=== PATIENT | male | born 1955 | race Caucasian/White ===

== ENCOUNTER 2021-01-08 11:00 | Inpatient (IN) ==
[2021-01-08] MEDS ORDERED: SODIUM CHLORIDE 0.9% 1000ML 1,000 ML IV SCH (11:30)
[2021-01-08 11:36] LABS: Basophils # (auto) 0.02 K/uL (0-0.2); Basophils % (auto) 0.2 %; Eosinophils # (auto) 0.04 K/uL (0-0.5); Eosinophils % (auto) 0.3 %; Hematocrit (blood only) 45.1 % (42-52); Hemoglobin 15.7 g/dL (14.0-18.0); Immature Granulocytes # (auto) 0.03 K/uL (0.00-0.02); Immature Granulocytes % (auto) 0.2 %; Lymphocytes # (auto) 2.63 K/uL (1.2-3.4); Lymphocytes % (auto) 21.5 %; Mean Corpuscular Hemoglobin 33.8 pg (25-34); Mean Corpuscular Hgb Conc 34.8 g/dL (32-36); Mean Platelet Volume 11.4 fL (7.4-10.4); Monocytes # (auto) 1.25 K/uL (0.11-0.59); Monocytes % (auto) 10.2 %; Neutrophils # (auto) 8.28 K/uL (1.4-6.5); Neutrophils % (auto) 67.6 %; Platelet Count 223 K/uL (130-400); RDW Coefficient of Variation 13.8 % (11.5-14.5); RDW Standard Deviation 48.7 fL (36.4-46.3); Red Blood Count 4.65 M/uL (4.7-6.1); White Blood Count 12.25 K/uL (4.8-10.8)
[2021-01-08 12:06] LABS: Alanine Aminotransferase 82 U/L (12-78); Albumin Level 3.1 gm/dl (3.4-5.0); Aspartate Aminotransferase 57 U/L (15-37); BUN Creatinine Ratio 20.3 (10-20); Blood Urea Nitrogen 17 mg/dl (7-18); Calcium 9.3 mg/dl (8.5-10.1); Carbon Dioxide 27 mmol/L (21-32); Chloride 113 mmol/L (98-107); Creatinine Clr Calc Pharmacy 101.5 ml/min; Est GFR (African American) 107.6 ml/min; Est GFR (Non-African American) 92.8 ml/min; Glucose 150 mg/dl (70-99); Magnesium 2.3 mg/dl (1.8-2.4); Potassium 3.7 mmol/L (3.5-5.1); Sodium 145 mmol/L (136-145)
--- NOTE | 2021-01-08 12:11 | CT Scan Report ---
HEAD CT NONCONTRAST CT DOSE: 1228.53 mGy.cm HISTORY: Brain tumor. Altered mental status. TECHNIQUE: Multiaxial CT images of the head were performed without the use of intravenous contrast. A utomated exposure control was utilized for this study. A dose lowering technique was utilized adheri ng to the principles of ALARA. Comparison: Brain MRI 08/20/2020. Findings: The paranasal sinuses and mastoid air cells are clear. Postoperative changes consistent wit h a prior right craniotomy. There is a large resection defect within the right frontal lobe deep to t he craniotomy site. This remains unchanged. Infiltrative heterogeneous mass again noted within the ri ght frontal lobe and extending into the right basal ganglia, corpus callosum, and left frontal lobe. This is similar to the prior brain MRI. There is mass effect along the frontal horn of the right late ral ventricle without significant midline shift. This is also unchanged. Multifocal hyperdense foci w ithin the frontal lobes likely represent calcification/posttreatment changes. Small focal areas of he morrhage are considered less likely but not entirely excluded. Mild motion artifact. No definite acut e infarct. Impression: 1. Redemonstration of the infiltrative mass centered within the right frontal lobe which extends into the right basal ganglia and left frontal lobe. Although direct comparison is difficult given the dif ferent modalities, this is overall similar in distribution compared to the prior brain MRI. 2. Multifocal hyperdense foci within the frontal lobes likely representing calcification/posttreatmen t changes within the mass. Small focal areas of hemorrhage are considered less likely but not entirel y excluded. Consider [address] follow to ensure stability. 3. No change in the resection cavity within the right frontal lobe. ACT 112: Negative or not required by law. Electronically signed by: Kb Spann M.D. 01/08/2021 12:10 PM
--- NOTE | 2021-01-08 12:15 | XRay Report ---
XR chest 1V portable CLINICAL HISTORY: weakness COMPARISON STUDY: No previous studies for comparison. FINDINGS: No pneumothorax. No pleural effusion. Mild reticular nodular opacities are seen within the right lower lung and might represent atelectasis or infiltrative lesion. Lung volumes are decreased with crowded lung markings. Cardiomediastinal silhouette is within normal limits in size. No significant pulmonary vascular congestion.. Aorta is tortuous and calcified. Osseous structures: unremarkable IMPRESSION: 1. Reticular nodular opacities at the right lower lung which might represent atelectasis or infiltra te. Evaluation is limited due to low lung volumes. 2. Atherosclerosis. ACT 112: Negative or not required by law. The above report was generated using voice recognition software. It may contain grammatical, syntax o r spelling errors. Electronically signed by: Amparo Downey DO 01/08/2021 12:14 PM
[2021-01-08 12:17] LABS: Albumin Globulin Ratio 0.7 (0.9-2); Alkaline Phosphatase 72 U/L (45-117); Bilirubin,Total 0.8 mg/dl (0.2-1); Globulin 4.3 gm/dl (2.5-4.0); Total Protein 7.4 gm/dl (6.4-8.2); Troponin I < 0.015 ng/ml (0-0.045)
--- NOTE | 2021-01-08 12:43 | Electrocardiogram Report ---
Test Reason : Blood Pressure : / mmHG Vent. Rate : 095 BPM Atrial Rate : 095 BPM P-R Int : 164 ms QRS Dur : 106 ms QT Int : 378 ms P-R-T Axes : 035 -47 008 degrees QTc Int : 475 ms Normal sinus rhythm Left anterior fascicular block Diffuse Minor Nonspecific T wave abnormality Prolonged QT Abnormal ECG No previous ECGs available Confirmed by Isidro Gómez ([id number]) on 01/08/2021 12:43:20 PM Referred By: REFERRED SELF Confirmed By:Isidro Gómez
[2021-01-08] MEDS ORDERED: PIPERACILLIN/TAZOBACTAM 4.5 GM/120 ML BAG IV ONE (13:17)
[2021-01-08] MEDS ORDERED: PIPERACILL/TAZOBAC CONSULT ACTIVE PRN ×2 (13:17→19:18)
[2021-01-08 15:31] LABS: Phenytoin (Dilantin) 16.4 mcg/ml (10-20)
[2021-01-08] MEDS ORDERED: VALPROATE SOD 250 MG in DEXTROSE 5% 50 ML IV STA (15:41)
[2021-01-08] MEDS ORDERED: SODIUM CHLORIDE 0.9% 10ML FLUSH IV ONE (15:42)
[2021-01-08] MEDS ORDERED: PHENYTOIN 100 MG in SYRINGE 0 ML IV STA (15:42)
[2021-01-08] MEDS ORDERED: dexAMETHasone 2 MG in SYRINGE 0 ML IV ONE (18:15)
[2021-01-08] MEDS ORDERED: OPTIRAY 320 125ml IV ONE (18:27)
--- NOTE | 2021-01-08 19:05 | CT Scan Report ---
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 Acute shortness of breath TECHNIQUE: Multiple CTA images of the chest were obtained after the intravenous administration of 120 ml Optiray. Coronal and sagittal MIPS were obtained from the axial data set and were submitted for review. All measurements were obtained according to NASCET criteria. A dose lowering technique was u tilized adhering to the principles of ALARA. COMPARISON: Chest radiograph of same day FINDINGS: CTA: The heart is upper limits of normal in size. Mild coronary artery calcifications. No thoracic aortic aneurysm or dissection. Mild atherosclerotic plaque the thoracic aortic arch. Patency of the imaged g reat vessels. The subsegmental branches of the pulmonary arterial tree are suboptimally opacified. No pulmonary emboli identified. CT CHEST: No thyroid nodule. No adenopathy. Dependent bibasilar linear consolidation with intermixed groundglas s densities. Tracheobronchial secretions with bibasilar mucous plugging. Respiratory motion artifact limits evaluation of the lung parenchyma. No pneumothorax, pleural effusion or overt pulmonary edema. Mild bilateral bronchial wall thickening. No suspicious pulmonary nodules identified. No pneumoperitoneum. Numerous hypodense foci of the liver, most of which likely represent cysts measu re up to 3.0 cm. Several of these lesions are too small to characterize. Tiny hiatal hernia. 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 Degenerative changes of the spine and shoulders. No suspicious lesions or acute fracture i dentified. IMPRESSION: 1. No pulmonary emboli. 2. Tracheobronchial secretions with bibasilar mucous plugging. 3. Dependent bibasilar consolidation is suggestive of atelectasis or pneumonia. Correlate clinically to exclude aspiration pneumonitis. 4. No pleural effusion. ACT 112: Negative or not required by law. The above report was generated using voice recognition software. It may contain grammatical, syntax o r spelling errors. Electronically signed by: Harish Del Castillo M.D. 01/08/2021 7:03 PM
--- NOTE | 2021-01-08 20:00 | History & Physical Report ---
Date of Service January 08, 2021 Assessment & Plan (1) Aspiration pneumonia: (2) Acute respiratory failure with hypoxia: Plan: -Admit to [facility] with telemetry -Patient presenting from home with shortness of breath, worsening weakness -In the ED, requiring nonrebreather mask to maintain saturations. CXR suggestive of aspiration pneumonia -CTA chest negative for pulmonary embolism however shows signs of mucous plugging -S/p Zosyn in the ED, continue with -Maintain n.p.o. status until mentation improves -Nebs, chest PT (3) Oligodendroglioma: Plan: -History of resection, chemotherapy, radiation -Currently no active treatment -No further treatment options per -Transition p.o. dexamethasone to IV while n.p.o. -Palliative consult (4) Seizures: Plan: -Transition to phenytoin and Depakote to IV while n.p.o. (5) Hypothyroidism: Plan: -IV levothyroxine while n.p.o. 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 History is unobtainable from the patient, is at the bedside who provides the history. reports that patient typically could walk with the use of an assistive device. Over the past week and a half, candie barahona has been having increasing left-sided weakness to the point where it is flaccid. Patient has been bedbound for the past couple of days. Patient has been having trouble swallowing his medications. He is nonverbal at baseline however will communicate by shaking his head yes and no. This morning, patient appeared to have increased work of breathing so he was brought to the ED for further evaluation. reports that he was very diaphoretic however did not take his temperature. Incontinent of bowel and bladder at baseline. No other symptoms reported. No recent seizure-like activity. In the ED, patient was requiring nonrebreather mask to maintain saturations. CXR is suggestive of aspiration pneumonia. WBC 12 K. Patient is afebrile and hemodynamically stable. Head CT shows brain mass unchanged. Patient was given IV Zosyn, IVF. Allergies Allergy/AdvReac Type Severity Reaction Status Date / Time baclofen Allergy Severe Unresponsiv Verified 01/08/21 15:56 e procarbazine Allergy Intermediate RASH, Verified 01/08/21 15:56 SWELLING OF HANDS/FACE Home Medications Medication Instructions Recorded Confirmed Type citalopram 40 mg tablet 20 mg PO HS 12/26/19 01/08/21 History levothyroxine 50 mcg tablet 50 mcg PO QAM 01/21/20 01/08/21 History acetaminophen 500 mg/15 mL oral 500 - 1,000 mg PO QID PRN 01/08/21 01/08/21 History liquid amoxicillin 250 mg/5 mL oral 500 mg PO BID 01/08/21 01/08/21 History suspension dexamethasone 2 mg tablet 2 mg PO BID 01/08/21 01/08/21 History divalproex 125 mg capsule,delayed 500 mg PO BID 01/08/21 01/08/21 History release sprinkle phenytoin 125 mg/5 mL oral 100 mg PO BID 01/08/21 01/08/21 History suspension (Dilantin-125) Past Med/Surg History Medical History (Updated 01/08/21 @ 19:56 by MONA Obrien) Dementia Depression GERD (gastroesophageal reflux disease) Hypothyroidism Migraine Oligodendroglioma hx of resection, chemo, radiation Poor historian POOR MEMORY Seizures Surgical History H/O abdominal surgery "TIED OFF VESSELS FOR OVERPRODUCTION OF TESTOTERONE" History of ear surgery MOLE REMOVED FROM EAR History of tonsillectomy S/P brain surgery X 2 SURGERIES [place] teeth removed Family History Family/Other No problems noted. 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 Houston's addendum for physical exam Results & Data Results & Data ([facility]) Vital Signs (Past 12 Hours) Vital Signs Temp Pulse Pulse Resp BP BP Pulse Ox 01/08/21 19:00 36.6 C 69 22 116/77 93 01/08/21 17:30 79 18 100/74 93 01/08/21 17:00 79 15 121/82 93 01/08/21 16:30 82 16 109/78 94 01/08/21 16:00 84 18 119/86 91 01/08/21 15:30 86 19 125/87 92 01/08/21 15:00 87 20 123/94 91 01/08/21 14:30 87 19 129/90 97 01/08/21 14:00 82 17 127/94 95 01/08/21 13:31 81 20 145/98 H 95 01/08/21 13:00 82 19 103/83 93 01/08/21 12:30 86 32 H 103/83 92 01/08/21 12:00 90 30 H 123/91 93 01/08/21 11:30 95 H 30 H 109/90 90 01/08/21 11:13 37.1 C 95 H 50 H 134/95 90 01/08/21 11:07 96 H 31 H 134/95 90 Laboratory Results Short CBC 01/08/21 Range/Units 10:30 WBC 12.25 H (4.8-10.8) K/uL Hgb 15.7 (14.0-18.0) g/dL Hct 45.1 (42-52) % Plt Count 223 (130-400) K/uL BMP 01/08/21 10:30 Sodium 145 Potassium 3.7 Chloride 113 H Carbon Dioxide 27 BUN 17 Creatinine 0.82 Glucose 150 H Calcium 9.3 Cardiac Enzymes 01/08/21 Range/Units 10:30 Troponin I < 0.015 (0-0.045) ng/ml Liver Function 01/08/21 Range/Units 10:30 Total Bilirubin 0.8 (0.2-1) mg/dl AST 57 H (15-37) U/L ALT 82 H (12-78) U/L Alkaline Phosphatase 72 (45-117) U/L Albumin 3.1 L (3.4-5.0) gm/dl Diagnostic Findings Chest X-Ray 01/08/21 11:24 XR chest 1V portable CLINICAL HISTORY: weakness COMPARISON STUDY: No previous studies for comparison. FINDINGS: No pneumothorax. No pleural effusion. Mild reticular nodular opacities are seen within the right lower lung and might represent atelectasis or infiltrative lesion. Lung volumes are decreased with crowded lung markings. Cardiomediastinal silhouette is within normal limits in size. No significant pulmonary vascular congestion.. Aorta is tortuous and calcified. Osseous structures: unremarkable IMPRESSION: 1. Reticular nodular opacities at the right lower lung which might represent atelectasis or infiltrate. Evaluation is limited due to low lung volumes. 2. Atherosclerosis. ACT 112: Negative or not required by law. The above report was generated using voice recognition software. It may contain grammatical, syntax or spelling errors. Electronically signed by: Amparo Downey DO 01/08/2021 12:[address] 01/08/21 11:[address] DOSE: 1228.53 mGy.cm HISTORY: Brain tumor. Altered mental status. TECHNIQUE: Multiaxial CT images of the head were performed without the use of intravenous contrast. Automated exposure control was utilized for this study. A dose lowering technique was utilized adhering to the principles of ALARA. Comparison: Brain MRI 08/20/2020. Findings: The paranasal sinuses and mastoid air cells are clear. Postoperative changes consistent with a prior right craniotomy. There is a large resection defect within the right frontal lobe deep to the craniotomy site. This remains unchanged. Infiltrative heterogeneous mass again noted within the right frontal lobe and extending into the right basal ganglia, corpus callosum, and left frontal lobe. This is similar to the prior brain MRI. There is mass effect along the frontal horn of the right lateral ventricle without significant midline shift. This is also unchanged. Multifocal hyperdense foci within the frontal lobes likely represent calcification/posttreatment changes. Small focal areas of hemorrhage are considered less likely but not entirely excluded. Mild motion artifact. No definite acute infarct. Impression: 1. Redemonstration of the infiltrative mass centered within the right frontal lobe which extends into the right basal ganglia and left frontal lobe. Although direct comparison is difficult given the different modalities, this is overall similar in distribution compared to the prior brain MRI. 2. Multifocal hyperdense foci within the frontal lobes likely representing calcification/posttreatment changes within the mass. Small focal areas of hemorrhage are considered less likely but not entirely excluded. Consider [address] follow to ensure stability. 3. No change in the resection cavity within the right frontal lobe. ACT 112: Negative or not required by law. Electronically signed by: Kb Spann M.D. 01/08/2021 12:10 PM Chest CTA 01/08/21 13:19 CT angio chest PE protocol CT DOSE: 734.44 mGy.cm HISTORY: 65 years-old Male with glioma brain, resp sx, PE vs aspiration. Acute shortness of breath TECHNIQUE: Multiple CTA images of the chest were obtained after the intravenous administration of 120 ml Optiray. Coronal and sagittal MIPS were obtained from the axial data set and were submitted for review. All measurements were obtained according to NASCET criteria. A dose lowering technique was utilized adhering to the principles of ALARA. COMPARISON: Chest radiograph of same day FINDINGS: CTA: The heart is upper limits of normal in size. Mild coronary artery calcifications. No thoracic aortic aneurysm or dissection. Mild atherosclerotic plaque the thoracic aortic arch. Patency of the imaged great vessels. The subsegmental branches of the pulmonary arterial tree are suboptimally opacified. No pulmonary emboli identified. CT CHEST: No thyroid nodule. No adenopathy. Dependent bibasilar linear consolidation with intermixed groundglass densities. Tracheobronchial secretions with bibasilar mucous plugging. Respiratory motion artifact limits evaluation of the lung parenchyma. No pneumothorax, pleural effusion or overt pulmonary edema. Mild bilateral bronchial wall thickening. No suspicious pulmonary nodules identified. No pneumoperitoneum. Numerous hypodense foci of the liver, most of which likely represent cysts measure up to 3.0 cm. Several of these lesions are too small to characterize. Tiny hiatal hernia. Mild gynecomastia. Degenerative changes of the spine and shoulders. No suspicious lesions or acute fracture identified. IMPRESSION: 1. No pulmonary emboli. 2. Tracheobronchial secretions with bibasilar mucous plugging. 3. Dependent bibasilar consolidation is suggestive of atelectasis or pneumonia. Correlate clinically to exclude aspiration pneumonitis. 4. No pleural effusion. ACT 112: Negative or not required by law. The above report was generated using voice recognition software. It may contain grammatical, syntax or spelling errors. Electronically signed by: Harish Del Castillo M.D. 01/08/2021 7:03 PM Code Status & VTE Plan Code Status Patient is a DNR as per my discussion with patient's who is the bedside. VTE Prophylaxis Plan VTE Prophylaxis will be ordered: Yes Supervising Physician Co-Signing Physician Notes Patient is a 65-year-old male with history of oligodendroglioma, hypothyroidism, seizure disorder, ambulatory dysfunction and other medical problems presents with history of worsening shortness of breath, generalized weakness ambulatory dysfunction for the last few few days. Patient is mostly nonverbal and most of the history is obtained from patient's at bedside, old records and from ER physician. As per the family, patient has been mostly bedbound since last 3 days. Also noticed to have dysphagia and has difficulty taking his medications. His dyspnea gradually worsening which prompted family to bring the patient to ED. No aggressive management as per patient's family. He was noted to have elevated white count 12.25, CT head showed infiltrative mass within the right frontal lobe which extends into the right basal ganglia and left frontal lobe, similar in distribution compared to prior MRI. Also noted multifocal hyperdense foci within the frontal lobes likely represent dating calcification/posttreatment changes within the mass. Small focal areas of hemorrhage are considered less likely but are not excluded. CTA showed tracheobronchial secretions with bibasilar mucous plugging. Dependent bibasilar consolidation suggestive of atelectasis or pneumonia noted. Lactic acid is within normal limits. He was placed on nonrebreather while in ED. Physical Exam: Vitals signs as noted above General Appearance:Moderately built and nourished, no apparent distress Head: normocephalic, Atraumatic Eyes: normal inspection, EOMI Neck: supple, Trachea midline Respiratory/Chest: Coarse breath sounds, CTA Cardiovascular: S1, S2, No murmur Abdomen/GI:Soft, Non tender, Bowel sounds present Extremities/Musculoskeletal:normal inspection, no edema Neurologic/Psych:AA, tries to follow commands, complete neurological exam could not be performed, Non verbal Skin: normal color, warm Acute respiratory failure with hypoxia Mucous plugging Suspected aspiration pneumonitis Agree with empiric antibiotics Chest PT, hypertonic saline nebs Continue supplemental oxygen as needed No aggressive management as per patient's family Speech therapy Eval Aspiration precautions I personally reviewed the record. Patient is interviewed and examined at bedside. Patient's care is coordinated with Vianca Arellano SOFTWARE CLIENT ARCHITECT. Please refer to the documentation above for details of patient's presentation and for discussion of other issues.
[2021-01-08] MEDS: SODIUM CHLORIDE 0.9% 1000ML 1,000 ML IV SCH (20:06)
[2021-01-08] MEDS: PIPERACILLIN/TAZOBACTAM 3.375 GM in DEXTROSE 5% 100 ML IV SCH (20:25)
[2021-01-08] MEDS: ALBUT/IPRATROP 3MG/0.5MG NEB 3 ML VIAL NEB SCH (20:32)
[2021-01-08] MEDS: VALPROATE SOD 250 MG in DEXTROSE 5% 50 ML IV SCH (22:14)
[2021-01-09] MEDS: PIPERACILLIN/TAZOBACTAM 3.375 GM in DEXTROSE 5% 100 ML IV SCH ×3 (03:49→21:48)
[2021-01-09] MEDS: PHENYTOIN 100 MG in SYRINGE 0 ML IV SCH ×2 (06:11→17:36)
[2021-01-09] MEDS: dexAMETHasone 2 MG in SYRINGE 0 ML IV SCH ×2 (06:11→17:36)
[2021-01-09] MEDS: SODIUM CHLORIDE 0.9% 10ML FLUSH IV SCH ×2 (06:13→17:36)
[2021-01-09 08:01] LABS: Hematocrit (blood only) 40.5 % (42-52); Hemoglobin 13.6 g/dL (14.0-18.0); Mean Corpuscular Hemoglobin 32.7 pg (25-34); Mean Corpuscular Hgb Conc 33.6 g/dL (32-36); Mean Corpuscular Volume 97.4 fL (80-100); Mean Platelet Volume 10.9 fL (7.4-10.4); Platelet Count 193 K/uL (130-400); RDW Coefficient of Variation 13.7 % (11.5-14.5); RDW Standard Deviation 48.9 fL (36.4-46.3); Red Blood Count 4.16 M/uL (4.7-6.1); White Blood Count 10.04 K/uL (4.8-10.8)
[2021-01-09] MEDS: SODIUM CHLOR 7% 4 ML NEB NEB SCH ×2 (08:10→19:36)
[2021-01-09] MEDS: ALBUT/IPRATROP 3MG/0.5MG NEB 3 ML VIAL NEB SCH ×4 (08:10→19:35)
--- NOTE | 2021-01-09 08:14 | Emergency Department Note ---
History of Present Illness General Chief complaint: Illness Source: family and RN notes reviewed Mode of arrival: EMS Limitations: altered mental status History of Present Illness Provider complaint: Altered mental status, respiratory difficulty, hypoxia This patient is a 65-year-old male with a longstanding history of glioma status post resection, chemotherapy and is no longer being treated. states over the last week he has had a significant decline in his strength and mobility. He did require heavy encouragement to swallow his food and pills yesterday. states his p.o. intake has dropped off significantly. His oncologist in [place] put him on amoxicillin presuming this is a UTI as he is incontinent. Patient has not had a fever although did vomit up his medications today. 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 denies any fevers but states he has had significant difficulty breathing today his oxygen saturations have been very low reportedly in the 70s and he has been having raspy breath sounds. Home Medications Medication Instructions Recorded Confirmed Type citalopram 40 mg tablet 20 mg PO HS 12/26/19 01/08/21 History levothyroxine 50 mcg tablet 50 mcg PO QAM 01/21/20 01/08/21 History acetaminophen 500 mg/15 mL oral 500 - 1,000 mg PO QID PRN 01/08/21 01/08/21 History liquid amoxicillin 250 mg/5 mL oral 500 mg PO BID 01/08/21 01/08/21 History suspension dexamethasone 2 mg tablet 2 mg PO BID 01/08/21 01/08/21 History divalproex 125 mg capsule,delayed 500 mg PO BID 01/08/21 01/08/21 History release sprinkle phenytoin 125 mg/5 mL oral 100 mg PO BID 01/08/21 01/08/21 History suspension (Dilantin-125) Allergies Allergy/AdvReac Type Severity Reaction Status Date / Time baclofen Allergy Severe Unresponsiv Verified 01/08/21 15:56 e procarbazine Allergy Intermediate RASH, Verified 01/08/21 15:56 SWELLING OF HANDS/FACE Past Med/Surg History Medical History Altered mental status Dementia Depression GERD (gastroesophageal reflux disease) Hypothyroidism Migraine Oligodendroglioma hx of resection, chemo, radiation Palliative care encounter Poor historian [employer] Seizures Shortness of breath Weakness Surgical History H/O abdominal surgery "TIED OFF VESSELS FOR OVERPRODUCTION OF TESTOTERONE" History of ear surgery MOLE REMOVED FROM EAR History of tonsillectomy S/P brain surgery X 2 SURGERIES [place] teeth removed Family History Family/Other No problems noted. 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 and A total of 10 systems reviewed and were otherwise negative Physical Exam Vital Signs Vital Signs - 24 hr 01/08/21 11:07 01/08/21 11:13 01/08/21 11:30 Temperature 37.1 C Temperature Source Oral Pulse Rate 96 H 95 H 95 H Pulse Rate from SpO2 Sensor 97 H 95 H Respiratory Rate 31 H 50 H 30 H Respiratory Effort / Characteristics Accessory Muscle Use Labored Short of Breath Respiratory Depth Shallow Respiratory Pattern Tachypnea Blood Pressure 134/95 134/95 109/90 Blood Pressure Mean 108 108 96 Blood Pressure Position Sitting Pulse Oximetry 90 90 90 Oxygen Delivery Method Non-rebreather Non-rebreather Non-rebreather Oxygen Flow Rate 15 15 15 Sepsis Recent Fever Within 48 Hours Yes Sepsis New/Unexplained Change in Mental Status Yes Sepsis Action Taken by Nursing Physician Notified 01/08/21 12:00 01/08/21 12:30 01/08/21 13:00 Temperature Temperature Source Pulse Rate 90 86 82 Pulse Rate from SpO2 Sensor 90 81 83 Respiratory Rate 30 H 32 H 19 Respiratory Effort / Characteristics Respiratory Depth Respiratory Pattern Blood Pressure 123/91 103/83 103/83 Blood Pressure Mean 101 89 89 Blood Pressure Position Pulse Oximetry 93 92 93 Oxygen Delivery Method Non-rebreather Non-rebreather Oxygen Flow Rate 15 15 Sepsis Recent Fever Within 48 Hours Sepsis New/Unexplained Change in Mental Status Sepsis Action Taken by Nursing 01/08/21 13:31 01/08/21 14:00 Temperature Temperature Source Pulse Rate 81 82 Pulse Rate from SpO2 Sensor 81 82 Respiratory Rate 20 17 Respiratory Effort / Characteristics Respiratory Depth Respiratory Pattern Blood Pressure 145/98 H 127/94 Blood Pressure Mean 113 105 Blood Pressure Position Pulse Oximetry 95 95 Oxygen Delivery Method Non-rebreather Non-rebreather Oxygen Flow Rate 15 15 Sepsis Recent Fever Within 48 Hours Sepsis New/Unexplained Change in Mental Status Sepsis Action Taken by Nursing Vital signs reviewed. General: Chronically ill-appearing 65-year-old male, in some respiratory discomfort, altered and minimally responsive HEENT: No scleral icterus, pupils are equal but sluggish, neck supple. Atraumatic. Cardiovascular: Regular rate and rhythm, no extra sounds. Pulmonary: Coarse breath sounds bilaterally, increased work of breathing. Abdomen: Soft, nontender, nondistended, positive bowel sounds. Musculoskeletal: Atraumatic, no peripheral edema. Neurologic: Patient somnolent and difficult to arouse. Nonverbal. He does squeeze with the right hand apparently to command. He will not release on command. Patient does not perform any other tasks to command statements. Skin: Warm, dry, no rash Course Administered Medications Acetylcysteine (Acetylcysteine 10% Inhal Soln 4 Ml Dispensed By Resp.) 5 ml INH BIDR [facility] Stop: 02/08/21 11:29 Last Admin: 01/10/21 19:28 Dose: 5 ml Documented by: [id number] Admin: 01/10/21 08:05 Dose: 5 ml Documented by: [id number] Admin: 01/09/21 19:35 Dose: 5 ml Documented by: [id number] Admin: 01/09/21 14:50 Dose: 5 ml Documented by: [id number] Albuterol (Albut/Ipratrop 3mg/0.5mg Neb 3 Ml Vial) 3 ml NEB QIDR [facility] Stop: 02/07/21 19:17 Last Admin: 01/10/21 19:27 Dose: 3 ml Documented by: [id number] Admin: 01/10/21 15:04 Dose: 3 ml Documented by: [id number] Admin: 01/10/21 11:08 Dose: 3 ml Documented by: [id number] Admin: 01/10/21 08:02 Dose: 3 ml Documented by: [id number] Admin: 01/09/21 19:35 Dose: 3 ml Documented by: [id number] Admin: 01/09/21 14:50 Dose: 3 ml Documented by: [id number] Admin: 01/09/21 11:00 Dose: 3 ml Documented by: [id number] Admin: 01/09/21 08:10 Dose: 3 ml Documented by: [id number] Admin: 01/08/21 20:32 Dose: 3 ml Documented by: [id number] Citalopram Hydrobromide (Citalopram 20 Mg Tab) 20 mg PO HS HOME Stop: 02/09/21 20:59 Last Admin: 01/10/21 20:20 Dose: 20 mg Documented by: [id number] Dexamethasone (Dexamethasone 1 Mg Tab) 2 mg PO BID HOME Stop: 02/09/21 20:59 Last Admin: 01/10/21 20:21 Dose: 2 mg Documented by: [id number] Divalproex Sodium (Divalproex Sodium Sprinkle 125 Mg Cap) 500 mg PO BID HOME Stop: 02/09/21 20:59 Last Admin: 01/10/21 20:20 Dose: 500 mg Documented by: [id number] Piperacillin Sod/Tazobactam (Sod 3.375 gm/ Dextrose) 115 mls @ 28.75 mls/hr IV Q8H [facility]; Protocol Stop: 01/15/21 19:59 Last Admin: 01/10/21 21:43 Dose: 28.8 mls/hr Documented by: [id number] Infusion: 01/10/21 17:39 Dose: 0 mls/hr Documented by: [id number] Admin: 01/10/21 13:07 Dose: 28.8 mls/hr Documented by: [id number] Infusion: 01/10/21 10:11 Dose: 0 mls/hr Documented by: [id number] Admin: 01/10/21 06:05 Dose: 28.8 mls/hr Documented by: [id number] Infusion: 01/10/21 01:40 Dose: 0 mls/hr Documented by: [id number] Admin: 01/09/21 21:48 Dose: 28.8 mls/hr Documented by: [id number] Infusion: 01/09/21 19:42 Dose: 0 mls/hr Documented by: [id number] Admin: 01/09/21 15:00 Dose: 28.8 mls/hr Documented by: [id number] Infusion: 01/09/21 08:00 Dose: 0 mls/hr Documented by: [id number] Admin: 01/09/21 03:49 Dose: 28.8 mls/hr Documented by: [id number] Infusion: 01/09/21 00:50 Dose: 0 mls/hr Documented by: [id number] Admin: 01/08/21 20:25 Dose: 28.8 mls/hr Documented by: [id number] Phenytoin (Phenytoin 100 Mg/4 Ml Udp) 100 mg PO BID@0600,1600 HOME Stop: 02/09/21 15:59 Last Admin: 01/10/21 17:38 Dose: 100 mg Documented by: [id number] Sodium Chloride (Sodium Chloride 0.9% 10ml Flush) 20 ml IV Q12H HOME Stop: 02/08/21 05:59 Last Admin: 01/10/21 17:37 Dose: 20 ml Documented by: [id number] Admin: 01/10/21 06:04 Dose: 20 ml Documented by: [id number] Admin: 01/09/21 17:36 Dose: 20 ml Documented by: [id number] Admin: 01/09/21 06:13 Dose: 20 ml Documented by: [id number] Sodium Chloride (Sodium Chlor 7% 4 Ml Neb) 4 ml NEB BIDR HOME Stop: 02/08/21 06:59 Last Admin: 01/10/21 19:27 Dose: 4 ml Documented by: [id number] Admin: 01/10/21 08:05 Dose: 4 ml Documented by: [id number] Admin: 01/09/21 19:36 Dose: 4 ml Documented by: [id number] Admin: 01/09/21 08:10 Dose: 4 ml Documented by: [id number] Discontinued Medications Sodium Chloride (Nss 1000ml) 1,000 mls @ 125 mls/hr IV .Q8H HOME Stop: 01/08/21 19:29 Last Infusion: 01/08/21 20:30 Dose: 0 mls/hr Documented by: [id number] Admin: 01/08/21 12:32 Dose: 125 mls/hr Documented by: [id number] Piperacillin Sod/Tazobactam Sod (Zosyn) 4.5 gm in 120 mls @ 240 mls/hr IV NOW ONE Stop: 01/08/21 13:46 Last Infusion: 01/08/21 15:40 Dose: 0 mls/hr Documented by: [id number] Admin: 01/08/21 15:03 Dose: 240 mls/hr Documented by: [id number] Phenytoin 100 mg/ Syringe 2 mls @ 1 mls/min IV Q12H HOME Stop: 02/08/21 05:59 Last Admin: 01/10/21 06:05 Dose: 1 mls/min Documented by: [id number] Admin: 01/09/21 17:36 Dose: 1 mls/min Documented by: [id number] Admin: 01/09/21 06:11 Dose: 1 mls/min Documented by: [id number] Valproic Acid 250 mg/ Dextrose 52.5 mls @ 52.5 mls/hr IV QID HOME Stop: 02/07/21 20:59 Last Infusion: 01/10/21 10:57 Dose: 0 mls/hr Documented by: [id number] Admin: 01/10/21 09:50 Dose: 52.5 mls/hr Documented by: [id number] Infusion: 01/09/21 22:52 Dose: 0 mls/hr Documented by: [id number] Admin: 01/09/21 21:48 Dose: 52.5 mls/hr Documented by: [id number] Admin: 01/09/21 21:42 Dose: Not Given Documented by: [id number] Infusion: 01/09/21 17:35 Dose: 0 mls/hr Documented by: [id number] Admin: 01/09/21 16:13 Dose: 52.5 mls/hr Documented by: [id number] Infusion: 01/09/21 10:15 Dose: 0 mls/hr Documented by: [id number] Admin: 01/09/21 09:12 Dose: 52.5 mls/hr Documented by: [id number] Infusion: 01/08/21 23:20 Dose: 0 mls/hr Documented by: [id number] Admin: 01/08/21 22:14 Dose: 52.5 mls/hr Documented by: [id number] Valproic Acid 250 mg/ Dextrose 52.5 mls @ 52.5 mls/hr IV NOW STA Stop: 01/08/21 16:40 Last Infusion: 01/08/21 18:00 Dose: 0 mls/hr Documented by: [id number] Admin: 01/08/21 16:53 Dose: 52.5 mls/hr Documented by: [id number] Phenytoin 100 mg/ Syringe 2 mls @ 1 mls/min IV NOW STA Stop: 01/08/21 15:43 Last Admin: 01/08/21 16:53 Dose: 1 mls/min Documented by: [id number] Dexamethasone 2 mg/ Syringe 0.5 mls @ 1 mls/min IV ONE ONE Stop: 01/08/21 18:16 Last Admin: 01/08/21 20:57 Dose: 1 mls/min Documented by: [id number] Dexamethasone 2 mg/ Syringe 0.5 mls @ 1 mls/min IV Q12H HOME Stop: 02/08/21 05:59 Last Admin: 01/10/21 06:03 Dose: 1 mls/min Documented by: [id number] Admin: 01/09/21 17:36 Dose: 1 mls/min Documented by: [id number] Admin: 01/09/21 06:11 Dose: 1 mls/min Documented by: [id number] Sodium Chloride (Nss 1000ml) 1,000 mls @ 80 mls/hr IV .[id number] HOME Stop: 02/07/21 19:17 Last Admin: 01/09/21 09:22 Dose: Not Given Documented by: [id number] Infusion: 01/09/21 08:45 Dose: 0 mls/hr Documented by: [id number] Admin: 01/08/21 20:06 Dose: 80 mls/hr Documented by: [id number] Levothyroxine Sodium 25 mcg/ (Syringe) 1.25 mls @ 0.625 mls/min IV Q72H HOME; Protocol Stop: 02/08/21 08:59 Last Admin: 01/09/21 09:13 Dose: 0.625 mls/min Documented by: [id number] Lactated Ringer's (Lr) 1,000 mls @ 75 mls/hr IV .[id number] ONE Stop: 01/09/21 21:56 Last Infusion: 01/09/21 22:35 Dose: 0 mls/hr Documented by: [id number] Admin: 01/09/21 09:12 Dose: 75 mls/hr Documented by: [id number] Ioversol (Optiray 320 125ml) 120 ml IV ONCE ONE Stop: 01/08/21 18:28 Last Admin: 01/08/21 18:27 Dose: 120 ml Documented by: [id number] Sodium Chloride (Sodium Chloride 0.9% 10ml Flush) 20 ml IV NOW ONE Stop: 01/08/21 15:43 Last Admin: 01/08/21 16:55 Dose: 20 ml Documented by: [id number] Medical Decision Making Differential Diagnosis Infection, dehydration, metabolic abnormality, hypo/hyperglycemia, electrolyte disturbance, anemia, hypoxia, cardiac sources, intracerebral event, toxicologic, neurologic, as well as other pathologies. Medical Records Attestation: I reviewed the patient's medical records. Home Medications Current Medication List: was personally reviewed by me Laboratory Data Attestation: I reviewed the patient's lab results. Result diagrams: 01/10/21 08:49 01/10/21 08:49 Lab Results 01/08/21 01/08/21 01/08/21 Range/Units 10:30 10:30 11:53 WBC 12.25 H (4.8-10.8) K/uL RBC 4.65 L (4.7-6.1) M/uL Hgb 15.7 (14.0-18.0) g/dL Hct 45.1 (42-52) % MCV 97.0 (80-100) fL MCH 33.8 (25-34) pg MCHC 34.8 (32-36) g/dL RDW Std Deviation 48.7 H (36.4-46.3) fL RDW Coeff of Jose 13.8 (11.5-14.5) % Plt Count 223 (130-400) K/uL MPV 11.4 H (7.4-10.4) fL Immature Gran % (Auto) 0.2 % Neut % (Auto) 67.6 % Lymph % (Auto) 21.5 % Porter % (Auto) 10.2 % Eos % (Auto) 0.3 % Baso % (Auto) 0.2 % Neut # (Auto) 8.28 H (1.4-6.5) K/uL Lymph # (Auto) 2.63 (1.2-3.4) K/uL Porter # (Auto) 1.25 H (0.11-0.59) K/uL Eos # (Auto) 0.04 (0-0.5) K/uL Baso # (Auto) 0.02 (0-0.2) K/uL Immature Gran # (Auto) 0.03 H (0.00-0.02) K/uL Sodium 145 (136-145) mmol/L Potassium 3.7 (3.5-5.1) mmol/L Chloride 113 H (98-107) mmol/L Carbon Dioxide 27 (21-32) mmol/L Anion Gap 5.0 (3-11) BUN 17 (7-18) mg/dl Creatinine 0.82 (0.6-1.4) mg/dl Est Cr Clr Drug Dosing 101.5 ml/min Est GFR ( Amer) 107.6 ml/min Est GFR (Non-Af Amer) 92.8 ml/min BUN/Creatinine Ratio 20.3 H (10-20) Glucose 150 H (70-99) mg/dl Calcium 9.3 (8.5-10.1) mg/dl Magnesium 2.3 (1.8-2.4) mg/dl Total Bilirubin 0.8 (0.2-1) mg/dl AST 57 H (15-37) U/L ALT 82 H (12-78) U/L Alkaline Phosphatase 72 (45-117) U/L Troponin I < 0.015 (0-0.045) ng/ml Total Protein 7.4 (6.4-8.2) gm/dl Albumin 3.1 L (3.4-5.0) gm/dl Globulin 4.3 H (2.5-4.0) gm/dl Albumin/Globulin Ratio 0.7 L (0.9-2) TSH 1.750 (0.300-4.500) uIu/ml COVID-19 Eval Order Covid19 at [facility] SARS-CoV-2 (PCR) (Negative) 01/08/21 Range/Units 11:53 WBC (4.8-10.8) K/uL RBC (4.7-6.1) M/uL Hgb (14.0-18.0) g/dL Hct (42-52) % MCV (80-100) fL MCH (25-34) pg MCHC (32-36) g/dL RDW Std Deviation (36.4-46.3) fL RDW Coeff of Jose (11.5-14.5) % Plt Count (130-400) K/uL MPV (7.4-10.4) fL Immature Gran % (Auto) % Neut % (Auto) % Lymph % (Auto) % Porter % (Auto) % Eos % (Auto) % Baso % (Auto) % Neut # (Auto) (1.4-6.5) K/uL Lymph # (Auto) (1.2-3.4) K/uL Porter # (Auto) (0.11-0.59) K/uL Eos # (Auto) (0-0.5) K/uL Baso # (Auto) (0-0.2) K/uL Immature Gran # (Auto) (0.00-0.02) K/uL Sodium (136-145) mmol/L Potassium (3.5-5.1) mmol/L Chloride (98-107) mmol/L Carbon Dioxide (21-32) mmol/L Anion Gap (3-11) BUN (7-18) mg/dl Creatinine (0.6-1.4) mg/dl Est Cr Clr Drug Dosing ml/min Est GFR ( Amer) ml/min Est GFR (Non-Af Amer) ml/min BUN/Creatinine Ratio (10-20) Glucose (70-99) mg/dl Calcium (8.5-10.1) mg/dl Magnesium (1.8-2.4) mg/dl Total Bilirubin (0.2-1) mg/dl AST (15-37) U/L ALT (12-78) U/L Alkaline Phosphatase (45-117) U/L Troponin I (0-0.045) ng/ml Total Protein (6.4-8.2) gm/dl Albumin (3.4-5.0) gm/dl Globulin (2.5-4.0) gm/dl Albumin/Globulin Ratio (0.9-2) TSH (0.300-4.500) uIu/ml COVID-19 Eval Order SARS-CoV-2 (PCR) NEGATIVE (Negative) Imaging Data Radiologist's Impression: Chest X-Ray 01/08/21 11:24 XR chest 1V portable CLINICAL HISTORY: weakness COMPARISON STUDY: No previous studies for comparison. FINDINGS: No pneumothorax. No pleural effusion. Mild reticular nodular opacities are seen within the right lower lung and might represent atelectasis or infiltrative lesion. Lung volumes are decreased with crowded lung markings. Cardiomediastinal silhouette is within normal limits in size. No significant pulmonary vascular congestion.. Aorta is tortuous and calcified. Osseous structures: unremarkable IMPRESSION: 1. Reticular nodular opacities at the right lower lung which might represent atelectasis or infiltrate. Evaluation is limited due to low lung volumes. 2. Atherosclerosis. ACT 112: Negative or not required by law. The above report was generated using voice recognition software. It may contain grammatical, syntax or spelling errors. Electronically signed by: Amparo Downey DO 01/08/2021 12:[address] 01/08/21 11:[address] DOSE: 1228.53 mGy.cm HISTORY: Brain tumor. Altered mental status. TECHNIQUE: Multiaxial CT images of the head were performed without the use of intravenous contrast. Automated exposure control was utilized for this study. A dose lowering technique was utilized adhering to the principles of ALARA. Comparison: Brain MRI 08/20/2020. Findings: The paranasal sinuses and mastoid air cells are clear. Postoperative changes consistent with a prior right craniotomy. There is a large resection defect within the right frontal lobe deep to the craniotomy site. This remains unchanged. Infiltrative heterogeneous mass again noted within the right frontal lobe and extending into the right basal ganglia, corpus callosum, and left frontal lobe. This is similar to the prior brain MRI. There is mass effect along the frontal horn of the right lateral ventricle without significant midline shift. This is also unchanged. Multifocal hyperdense foci within the frontal lobes likely represent calcification/posttreatment changes. Small focal areas of hemorrhage are considered less likely but not entirely excluded. Mild motion artifact. No definite acute infarct. Impression: 1. Redemonstration of the infiltrative mass centered within the right frontal lobe which extends into the right basal ganglia and left frontal lobe. Although direct comparison is difficult given the different modalities, this is overall similar in distribution compared to the prior brain MRI. 2. Multifocal hyperdense foci within the frontal lobes likely representing calcification/posttreatment changes within the mass. Small focal areas of hemorrhage are considered less likely but not entirely excluded. Consider [address] follow to ensure stability. 3. No change in the resection cavity within the right frontal lobe. ACT 112: Negative or not required by law. Electronically signed by: Kb Spann M.D. 01/08/2021 12:10 PM Chest CTA 01/08/21 13:19 CT angio chest PE protocol CT DOSE: 734.44 mGy.cm HISTORY: 65 years-old Male with glioma brain, resp sx, PE vs aspiration. Acute shortness of breath TECHNIQUE: Multiple CTA images of the chest were obtained after the intravenous administration of 120 ml Optiray. Coronal and sagittal MIPS were obtained from the axial data set and were submitted for review. All measurements were obtained according to NASCET criteria. A dose lowering technique was utilized adhering to the principles of ALARA. COMPARISON: Chest radiograph of same day FINDINGS: CTA: The heart is upper limits of normal in size. Mild coronary artery calc ifications. No thoracic aortic aneurysm or dissection. Mild atherosclerotic plaque the thoracic aortic arch. Patency of the imaged great vessels. The subsegmental branches of the pulmonary arterial tree are suboptimally opacified. No pulmonary emboli identified. CT CHEST: No thyroid nodule. No adenopathy. Dependent bibasilar linear consolidation with intermixed groundglass densities. Tracheobronchial secretions with bibasilar mucous plugging. Respiratory motion artifact limits evaluation of the lung parenchyma. No pneumothorax, pleural effusion or overt pulmonary edema. Mild bilateral bronchial wall thickening. No suspicious pulmonary nodules identified. No pneumoperitoneum. Numerous hypodense foci of the liver, most of which likely represent cysts measure up to 3.0 cm. Several of these lesions are too small to characterize. Tiny hiatal hernia. Mild gynecomastia. Degenerative changes of the spine and shoulders. No suspicious lesions or acute fracture identified. IMPRESSION: 1. No pulmonary emboli. 2. Tracheobronchial secretions with bibasilar mucous plugging. 3. Dependent bibasilar consolidation is suggestive of atelectasis or pneumonia. Correlate clinically to exclude aspiration pneumonitis. 4. No pleural effusion. ACT 112: Negative or not required by law. The above report was generated using voice recognition software. It may contain grammatical, syntax or spelling errors. Electronically signed by: Harish Del Castillo M.D. 01/08/2021 7:03 PM ECG Data Attestation: I personally reviewed and interpreted this ECG as follows: Indication: + SOB/dyspnea Rate (beats per minute): 95 Rhythm: + sinus rhythm ECG Intervals/blocks: + Left anterior fascicular block and + Prolonged QT ECG ST segments: + Normal ST segments and + repolarization abnormalities (Nonspecific T wave abnormality) ECG Findings: no PACs or no PVCs Comparison ECG Date: no prior available Blood Pressure Blood Pressure Findings: Normal blood pressure Blood Pressure Disposition: did not require urgent referral MDM Narrative This patient was evaluated and appeared to be in significant decline. IV access was obtained and laboratory work was drawn. An order for cardiac monitoring was placed and the patient is noted to be in a normal sinus rhythm at [address] was performed and reveals no acute intracranial hemorrhage or large amount of brain swelling. IV fluids were initiated and blood cultures were drawn. Chest x-ray was performed and reveals evidence of bibasilar consolidation concerning for pneumonia versus aspiration. Patient does have a leukocytosis of 12.25. Patient was medicated with IV Zosyn. Resuscitation status was discussed with the patient's . She reiterated the same statement she made in triage that if the patient could come off of the ventilator at some point she would like to give a trial. I did explain that with the patient's severity of illness both chronic and now acute, predicting his ability to come off of the ventilator could be quite difficult. This time the patient is tolerating nasal cannula oxygen and seems to be much more comfortable. Case was discussed with the hospitalist service who will evaluate the patient for admission and further management. Patient's and son were aware of the plan and agreed. Impression & Plan Acute respiratory failure with hypoxia, Oligodendroglioma, Aspiration pneumonia, Acute alteration in mental status Discharge Plan Visit Data Chief Complaint: Illness ED Provider: Lorena Fournier Discharge Problem: Acute respiratory failure with hypoxia, Oligodendroglioma, Aspiration pneumonia, Acute alteration in mental status Patient Disposition: Admitted As Inpatient Discharge Instructions Interventions: ED Discharge Assessment Last Done: 01/08/21 18:18
[2021-01-09 08:31] LABS: BUN Creatinine Ratio 24.4 (10-20); Creatinine Clr Calc Pharmacy 126.3 ml/min; Est GFR (African American) 119.1 ml/min; Est GFR (Non-African American) 102.7 ml/min; Potassium 3.8 mmol/L (3.5-5.1)
[2021-01-09] MEDS ORDERED: LACTATED RINGER'S 1,000 ML IV ONE (08:37)
[2021-01-09] MEDS ORDERED: LEVOTHYROXINE SODIUM 25 MCG in SYRINGE 0 ML IV SCH (09:00)
[2021-01-09] MEDS: VALPROATE SOD 250 MG in DEXTROSE 5% 50 ML IV SCH ×4 (09:12→21:48)
[2021-01-09] MEDS: SODIUM CHLORIDE 0.9% 1000ML 1,000 ML IV SCH (09:22)
[2021-01-09] MEDS: ACETYLCYSTEINE 10% INHAL SOLN 4 ML **DISPENSED BY RESP. INH SCH ×3 (11:49→19:35)
--- NOTE | 2021-01-09 16:19 | Hospitalist Progress Note ---
Date of Service January 09, 2021 Assessment & Plan (1) Acute respiratory failure with hypoxia: Plan: Acute respiratory failure with hypoxia Mucous plugging Suspected aspiration pneumonitis Agree with empiric antibiotics Chest PT, hypertonic saline nebs, Mucomyst Continue supplemental oxygen as needed No aggressive management as per patient's family Speech therapy Eval Aspiration precautions Oligodendroglioma: S/P Resection, chemotherapy, radiation Currently no active treatment No further treatment options per family Plan to change to PO meds if tolerates diet today Palliative consulted Seizures: Transition to PO phenytoin and Depakote as able Hypothyroidism: Continue IV levothyroxine for now Code Status DNI/DNR DVT Px: SCDs Re:Brain mass Admission and Anticipated Discharge Date Admission Date: January 08, 2021 Subjective Patient is seen and examined at bedside History unreliable secondary to being nonverbal No distress on exam Nods yes to having dyspnea Denies chest pain, dizziness, nausea, abdominal pain Requiring 4 L of supplemental oxygen to maintain saturation Review of Systems Review of Systems: Other Physical Exam Physical Exam: Physical Exam: Vitals signs as noted above General Appearance:Moderately built and nourished, no apparent distress Head: normocephalic, Atraumatic Eyes: normal inspection, EOMI Neck: supple, Trachea midline Respiratory/Chest: Decreased breath sounds, CTA Cardiovascular: S1, S2, No murmur Abdomen/GI:Soft, Non tender, Bowel sounds present Extremities/Musculoskeletal:normal inspection, no edema Neurologic/Psych:AA, tries to follow commands, complete neurological exam could not be performed, Non verbal Skin: normal color, warm Results & Data Results & Data ([facility]) Vital Signs (Past 12 Hours) Vital Signs Temp Pulse Resp BP Pulse Ox 01/09/21 16:08 36.6 C 90 20 116/77 96 01/09/21 14:50 78 20 96 01/09/21 11:31 37.1 C 78 20 123/83 95 01/09/21 11:00 67 18 95 01/09/21 08:13 61 18 93 01/09/21 07:52 37.0 C 66 20 116/77 92 01/09/21 04:49 36.4 C L 59 L 16 110/70 95 Laboratory Results Short CBC 01/09/21 Range/Units 07:44 WBC 10.04 (4.8-10.8) K/uL Hgb 13.6 L (14.0-18.0) g/dL Hct 40.5 L (42-52) % Plt Count 193 (130-400) K/uL BMP 01/09/21 07:44 Sodium 146 H Potassium 3.8 Chloride 115 H Carbon Dioxide 27 BUN 16 Creatinine 0.64 Glucose 136 H Calcium 9.0
[2021-01-09 20:12] LABS: Appearance Urine Clear (Clear); Bacteria Urine Automated Negative (Negative); Blood Urine Negative (Negative); Color Urine Dark Yellow; Glucose Urine UA Negative (Negative); Ketones Urine 1+ (Negative); Leukocyte Esterase Urine Trace (Negative); Nitrite Urine Positive (Negative); Protein Urine 1+ (Negative); Specific Gravity Urine > 1.045 (1.000-1.030); Urobilinogen Urine Negative (Negative); pH Urine 5.5 (4.5-7.5)
[2021-01-09 20:17] LABS: Bilirubin Urine 1+ (Negative)
[2021-01-10] MEDS: dexAMETHasone 2 MG in SYRINGE 0 ML IV SCH (06:03)
[2021-01-10] MEDS: SODIUM CHLORIDE 0.9% 10ML FLUSH IV SCH ×2 (06:04→17:37)
[2021-01-10] MEDS: PIPERACILLIN/TAZOBACTAM 3.375 GM in DEXTROSE 5% 100 ML IV SCH ×3 (06:05→21:43)
[2021-01-10] MEDS: PHENYTOIN 100 MG in SYRINGE 0 ML IV SCH (06:05)
[2021-01-10] MEDS: ALBUT/IPRATROP 3MG/0.5MG NEB 3 ML VIAL NEB SCH ×4 (08:02→19:27)
[2021-01-10] MEDS: ACETYLCYSTEINE 10% INHAL SOLN 4 ML **DISPENSED BY RESP. INH SCH ×2 (08:05→19:28)
[2021-01-10] MEDS: SODIUM CHLOR 7% 4 ML NEB NEB SCH ×2 (08:05→19:27)
[2021-01-10 09:10] LABS: Hematocrit (blood only) 37.1 % (42-52); Hemoglobin 12.4 g/dL (14.0-18.0); Mean Corpuscular Hemoglobin 32.5 pg (25-34); Mean Corpuscular Hgb Conc 33.4 g/dL (32-36); Mean Corpuscular Volume 97.4 fL (80-100); Mean Platelet Volume 10.8 fL (7.4-10.4); Platelet Count 176 K/uL (130-400); RDW Coefficient of Variation 13.9 % (11.5-14.5); Red Blood Count 3.81 M/uL (4.7-6.1); White Blood Count 8.86 K/uL (4.8-10.8)
[2021-01-10 09:35] LABS: Calcium 8.5 mg/dl (8.5-10.1); Creatinine Clr Calc Pharmacy 132.5 ml/min; Est GFR (African American) 121.5 ml/min; Est GFR (Non-African American) 104.8 ml/min; Potassium 3.7 mmol/L (3.5-5.1)
[2021-01-10] MEDS: VALPROATE SOD 250 MG in DEXTROSE 5% 50 ML IV SCH (09:50)
--- NOTE | 2021-01-10 14:14 | Palliative Care Consultation ---
Date of Consultation January 10, 2021 Assessment & Plan (1) Palliative care encounter: Mr. Mcconnell is a 65 year old male who presented to the [facility] with increased shortness of breath and overall weakness. He lives with his , Dorothy at home and is non verbal at baseline. He has a PMH that includes: Oligodendroglioma s/p resection/chemotherapy/radiation. No further treatment options are available for him. Subsequently, he has seizures related to the tumor and has GERD, migraines and hypothyroidism. On admission, a CXR was obtained and he was diagnosed with aspiration PNA. A CTA did rule out PE. He was started on nebulizers, chest PT and IV antibiotics. Palliative Medicine was consulted to discuss overall goals of care. I met with the patient in room 261. He opened his eyes to verbal stimuli but was unable to follow commands nor respond. We were unable to have a meaningful conversation. Per review of the chart, he apparently does nod and shake his head reliably, but he only shook his head once for me during my encounter. I was able to talk with his , Dorothy over the phone [phone]. She expressed that he has been home with assistance through [facility] more recently, but feels she needs 'more direction' on what to do. She expressed that the [facility] supported a t ransition to Hospice and already had some conversations with 'an agency in [place]' but was unable to decifer which. She explained that he has markie declining over the past few weeks and his son has been helping at the house as well. She said that he has been progressively getting weaker and weaker. We discussed Hospice in detail and what it can offer. We discussed the process in detail and what medications would be available as he declines, she was very receptive of this. They have equipment at home and would like to proceed with having him return home, hopefully on Monday with Hospice. Family would like to continue IV abx while inpatient, discontinue when DC. Pt having more difficulty with swallowing pills. The above was communicated with the hospitalist and case management. (2) Oligodendroglioma: Oligodendroglioma diagnosed in 1997 s/p resection/chemotherapy/radiation. No further treatment options are available for him. At baseline, non verbal. Able to nod and shake head consistently most often. (3) Altered mental status: (4) Shortness of breath: Appears comfortable, breathing even respirations and not labored. Mottling identified on bottom of feet. (5) Weakness: History of Present Illness Reason for Consultation: Goals of Care Requesting Physician: Vianca DUNN Attending Physician: Cecilio Houston MD History of Present Illness Mr. Mcconnell is a 65 year old male who presented to the [facility] with increased shortness of breath and overall weakness. He lives with his , Dorothy at home and is non verbal at baseline. He has a PMH that includes: Oligodendroglioma s/p resection/chemotherapy/radiation. No further treatment options are available for him. Subsequently, he has seizures related to the tumor and has GERD, migraines and hypothyroidism. On admission, a CXR was obtained and he was diagnosed with aspiration PNA. A CTA did rule out PE. He was started on nebulizers, chest PT and IV antibiotics. Palliative Medicine was consulted to discuss overall goals of care. Please see A/P for further details. Thanks for involving Palliative Medicine with this unfortunate individual. Allergies Allergy/AdvReac Type Severity Reaction Status Date / Time baclofen Allergy Severe Unresponsiv Verified 01/08/21 15:56 e procarbazine Allergy Intermediate RASH, Verified 01/08/21 15:56 SWELLING OF HANDS/FACE Home Medications Medication Instructions Recorded Confirmed Type citalopram 40 mg tablet 20 mg PO HS 12/26/19 01/08/21 History levothyroxine 50 mcg tablet 50 mcg PO QAM 01/21/20 01/08/21 History acetaminophen 500 mg/15 mL oral 500 - 1,000 mg PO QID PRN 01/08/21 01/08/21 History liquid amoxicillin 250 mg/5 mL oral 500 mg PO BID 01/08/21 01/08/21 History suspension dexamethasone 2 mg tablet 2 mg PO BID 01/08/21 01/08/21 History divalproex 125 mg capsule,delayed 500 mg PO BID 01/08/21 01/08/21 History release sprinkle phenytoin 125 mg/5 mL oral 100 mg PO BID 01/08/21 01/08/21 History suspension (Dilantin-125) Patient History Medical History (Updated 01/10/21 @ 14:31 by MONA Bobo) Altered mental status Dementia Depression GERD (gastroesophageal reflux disease) Hypothyroidism Migraine Oligodendroglioma hx of resection, chemo, radiation Palliative care encounter Poor historian POOR MEMORY Seizures Shortness of breath Weakness Surgical History H/O abdominal surgery "TIED OFF VESSELS FOR OVERPRODUCTION OF TESTOTERONE" History of ear surgery MOLE REMOVED FROM EAR History of tonsillectomy S/P brain surgery X 2 SURGERIES [place] teeth removed Family History Family/Other No problems noted. Father Family history of diabetes mellitus Denies family history of Crohn's disease Colorectal cancer Ulcerative colitis Social History Smoking Status: Never smoker Second Hand Exposure: Yes (IN THE PAST); Hx Alcohol Use: No Hx Substance Use: No Preferred Language: Lao Communication Ability: Effective Visual Impairment: No Limitations Hearing Ability: Normal Disposal Plant Operator Required: No Beliefs That Will Affect Care: None marital status: Current Living Situation: Spouse current occupational status: retired Other Information That Helps Us Care for You: No Feels Safe at Home: Yes Safety Concerns: Feels Safe At This Time Assistive Devices: Glasses and Oxygen - Continuous Review of Systems Review of Systems: [place] System Assessment Scale: Pain: 0/3 Tiredness: 1/3 Lack of Appetite: 1/3 Nausea: 0/3 Palliative Performance Scale: 30% Physical Exam Constitutional: + frail appearing and comfortable ENMT: Mouth: + dry oral mucous membranes Respiratory: no labored breathing Auscultation: + diminished lung sounds Cardiovascular: Rate/Rhythm: regular rate and regular rhythm Gastrointestinal (Abdomen): normal bowel sounds, soft, nontender, no hepatosplenomegaly Skin: + mottling (bottom of feet) and + pallor Psychiatric: Orientation: alert; + not oriented x 3 Insight: + impaired insight Judgement: + impaired judgement Results & Data ([facility]) Vital Signs (Past 12 Hours) Vital Signs Temp Pulse Resp BP BP Pulse Ox 01/10/21 11:25 95 01/10/21 11:24 88 L 01/10/21 11:12 77 18 93 01/10/21 10:53 94 01/10/21 08:07 70 18 95 01/10/21 07:29 36.9 C 68 18 114/77 95 01/10/21 04:58 37.2 C 62 16 137/73 97 PG Care Time/CCT Total # of Minutes Spent Total Time Spent with Patient: Total time spent is greater than 50% in coordination of care (as documented) at patient's floor/unit and/or counseling patient: 70 minutes with >50% of that time spent assessing the patient, discussing goals of care with family and collaborating with IDT Coding Level of Care Code 25515 Initial Inpt Care Lvl 3 Diagnoses Palliative care encounter Z51.5 Oligodendroglioma C71.9 Altered mental status R41.82 Shortness of breath R06.02 Weakness R53.1 Time Spent (min) 70
--- NOTE | 2021-01-10 16:44 | Hospitalist Progress Note ---
Date of Service January 10, 2021 Assessment & Plan (1) Acute respiratory failure with hypoxia: Plan: Acute respiratory failure with hypoxia Mucous plugging Suspected aspiration pneumonitis Agree with empiric antibiotics Chest PT, hypertonic saline nebs, Mucomyst Continue supplemental oxygen as needed No aggressive management as per patient's family Speech therapy Eval Aspiration precautions Unable to wean off of oxygen Continue current therapy Oligodendroglioma: S/P Resection, chemotherapy, radiation Currently no active treatment No further treatment options per family Transition to home PO meds today as tolerating diet Palliative consulted Seizures: Continue phenytoin and Depakote Hypothyroidism: Continue levothyroxine Code Status DNI/DNR DVT Px: SCDs Re:Brain mass Admission and Anticipated Discharge Date Admission Date: January 08, 2021 Subjective Patient is seen and examined at bedside History difficult to obtain Reports dyspnea with pleuritic pain Denies chest pain, dizziness, nausea, abdominal pain Unable to wean off of oxygen Review of Systems Review of Systems: All systems reviewed & are unremarkable except as noted in Subjective Physical Exam Physical Exam: Physical Exam: Vitals signs as noted above General Appearance:Moderately built and nourished, no apparent distress Head: normocephalic, Atraumatic Eyes: normal inspection, EOMI Neck: supple, Trachea midline Respiratory/Chest: Decreased breath sounds, CTA Cardiovascular: S1, S2, No murmur Abdomen/GI:Soft, Non tender, Bowel sounds present Extremities/Musculoskeletal:normal inspection, no edema Neurologic/Psych:AA, tries to follow commands, complete neurological exam could not be performed, Non verbal Skin: normal color, warm Results & Data Results & Data ([facility]) Vital Signs (Past 12 Hours) Vital Signs Temp Pulse Resp BP BP Pulse Ox 01/10/21 16:00 37.1 C 77 18 119/75 98 01/10/21 15:05 73 16 97 01/10/21 11:25 95 01/10/21 11:24 88 L 01/10/21 11:12 77 18 93 01/10/21 10:53 94 01/10/21 08:07 70 18 95 01/10/21 07:29 36.9 C 68 18 114/77 95 01/10/21 04:58 37.2 C 62 16 137/73 97 Laboratory Results Short CBC 01/10/21 Range/Units 08:49 WBC 8.86 (4.8-10.8) K/uL Hgb 12.4 L (14.0-18.0) g/dL Hct 37.1 L (42-52) % Plt Count 176 (130-400) K/uL BMP 01/10/21 08:49 Sodium 145 Potassium 3.7 Chloride 111 H Carbon Dioxide 28 BUN 14 Creatinine 0.61 Glucose 120 H Calcium 8.5 Urine 01/09/21 Range/Units 19:50 Urine Color Dark Yellow Urine Appearance Clear (Clear) Urine pH 5.5 (4.5-7.5) Ur Specific [place] > 1.045 H (1.000-1.030) Urine Protein 1+ H (Negative) Urine Glucose (UA) Negative (Negative)
[2021-01-10] MEDS: PHENYTOIN 100 MG/4 ML UDP PO SCH (17:38)
[2021-01-10] MEDS: DIVALPROEX SODIUM SPRINKLE 125 MG CAP PO SCH (20:20)
[2021-01-10] MEDS: CITALOPRAM 20 MG TAB PO SCH (20:20)
[2021-01-10] MEDS: dexAMETHasone 1 MG TAB PO SCH (20:21)
[2021-01-11] MEDS: PHENYTOIN 100 MG/4 ML UDP PO SCH ×2 (05:29→16:20)
[2021-01-11] MEDS: LEVOTHYROXINE SODIUM 50 MCG TABLET PO SCH (05:29)
[2021-01-11] MEDS: SODIUM CHLORIDE 0.9% 10ML FLUSH IV SCH ×2 (05:30→18:38)
[2021-01-11] MEDS: PIPERACILLIN/TAZOBACTAM 3.375 GM in DEXTROSE 5% 100 ML IV SCH ×3 (05:30→22:19)
[2021-01-11] MEDS: ALBUT/IPRATROP 3MG/0.5MG NEB 3 ML VIAL NEB SCH ×4 (07:10→19:42)
[2021-01-11] MEDS: ACETYLCYSTEINE 10% INHAL SOLN 4 ML **DISPENSED BY RESP. INH SCH ×2 (07:10→19:41)
[2021-01-11] MEDS: SODIUM CHLOR 7% 4 ML NEB NEB SCH ×2 (07:10→19:41)
--- NOTE | 2021-01-11 07:57 | Hospitalist Progress Note ---
Date of Service January 11, 2021 Assessment & Plan (1) Acute respiratory failure with hypoxia: Plan: Acute respiratory failure with hypoxia Mucous plugging Suspected aspiration pneumonitis Possible Metabolic encephalopathy Agree with empiric antibiotics Chest PT, hypertonic saline nebs, Mucomyst Continue supplemental oxygen as needed No aggressive management as per patient's family Speech therapy Eval Aspiration precautions Unable to wean off of oxygen Family request pulmonary evaluation And appreciate palliative care input Oligodendroglioma: S/P Resection, chemotherapy, radiation Currently no active treatment No further treatment options per family Continue home meds Appreciate Palliative care Input Plan to transition to hospice eventually Seizures: Continue phenytoin and Depakote Hypothyroidism: Continue levothyroxine Code Status DNI/DNR DVT Px: SCDs Re:Brain mass Admission and Anticipated Discharge Date Admission Date: January 08, 2021 Subjective Patient is seen and examined at bedside History difficult to obtain No distress on exam Discussed with patient's over the phone: Requests Pulm eval Patient has cough but was not able to expectorate Still requiring 4 liters of oxygen to maintain Sats Review of Systems Review of Systems: All systems reviewed & are unremarkable except as noted in Subjective Physical Exam Physical Exam: Physical Exam: Vitals signs as noted above General Appearance:Moderately built and nourished, no apparent distress Head: normocephalic, Atraumatic Eyes: normal inspection, EOMI Neck: supple, Trachea midline Respiratory/Chest: Decreased breath sounds, CTA Cardiovascular: S1, S2, No murmur Abdomen/GI:Soft, Non tender, Bowel sounds present Extremities/Musculoskeletal:normal inspection, no edema Neurologic/Psych:AA, tries to follow commands, complete neurological exam could not be performed, Non verbal Skin: normal color, warm Results & Data Results & Data ([facility]) Vital Signs (Past 12 Hours) Vital Signs Temp Pulse Pulse Resp BP Pulse Ox 01/11/21 07:46 78 01/11/21 07:42 37.3 C 81 16 153/80 H 92 01/11/21 07:11 83 16 94 01/11/21 03:06 37 C 82 16 122/72 94 01/10/21 23:45 80 01/10/21 23:09 36.3 C L 86 16 125/77 94 Laboratory Results [facility] 01/11/21 07:14 Sodium 138 Potassium 3.6 Chloride 106 Carbon Dioxide 27 BUN 12 Creatinine 0.54 L Glucose 93 Calcium 8.2 L
[2021-01-11] MEDS: DIVALPROEX SODIUM SPRINKLE 125 MG CAP PO SCH ×2 (08:08→20:47)
[2021-01-11] MEDS: dexAMETHasone 1 MG TAB PO SCH ×2 (08:08→20:47)
[2021-01-11 08:25] LABS: BUN Creatinine Ratio 21.8 (10-20); Calcium 8.2 mg/dl (8.5-10.1); Creatinine Clr Calc Pharmacy 149.7 ml/min; Est GFR (African American) 127.7 ml/min; Est GFR (Non-African American) 110.2 ml/min; Potassium 3.6 mmol/L (3.5-5.1)
--- NOTE | 2021-01-11 15:22 | Pulmonary Consultation ---
Date of Consultation January 11, 2021 Assessment & Plan (1) Aspiration pneumonia: (2) Altered mental status: (3) Acute respiratory failure with hypoxia: CT chest 01/08/2021 personally reviewed: Bilateral lower lobe infiltrate appreciated No mediastinal lymphadenopathy --Acute hypoxic respiratory failure Secondary to multilobar bilateral pneumonia Likely from chronic aspiration COVID-19 PCR negative Patient has progressive worsening mental status from his underlying progressing oligodendroglioma Continue with aspiration precautions CoughAssist along with chest vest therapy I do not think patient will be able to use flutter valve I will add hypertonic saline nebulized Plan: Overall prognosis of the patient is guarded Patient will have chronic aspiration pneumonia most likely from worsening mental status from progressing oligodendroglioma We will continue with antibiotics and try to see if there is any improvement in the mentation with antibiotics I do not think patient is going to benefit from bronchoscopy given overall poor prognosis and very high likelihood of recurrence Patient is not getting his seizure medication for a while Would recommend if possible change all the medications IV, neurology consult will be beneficial Given the overall poor prognosis I think palliative care consult and hospice should be thought of if no improvement in the next 24-48 hours All questions inquiries of the patient's were answered in depth. Please note the above document was generated using voice recognition software. It may contain grammatical, syntax or spelling errors.Any formal questions or concerns about the content, text or information contained within the body of this dictation should be directly addressed to the provider for clarification. History of Present Illness Attending Physician: Cecilio Houston MD History of Present Illness 65-year-old male past medical history of oligodendroglioma diagnosed initially 1998 s/p resection with chemoradiation, he had recurrence and another 2 surgeries done last 1 being in , hypothyroidism, history of seizures He was present to the ER because of worsening mental status generalized weakness and shortness of breath Patient is nonverbal. Patient's was in the room during examination who helped with getting histo ry Apparently patient family were going towards hospice the following day of his presentation to the ER. Patient has been slowly having difficulty swallowing. He follows simple commands occasionally. He does cough especially when he is eating. Whenever patient is being fed even the medication he usually keeps it in the mouth. No subjective fevers at home. At the time of examination patient was opening his eyes to voice but he was not following commands. He was coughing. Social history: Non-smoker, no alcohol use, no illicit drug use. No birds at home. Allergies Allergy/AdvReac Type Severity Reaction Status Date / Time baclofen Allergy Severe Unresponsiv Verified 01/08/21 15:56 e procarbazine Allergy Intermediate RASH, Verified 01/08/21 15:56 SWELLING OF HANDS/FACE Home Medications Medication Instructions Recorded Confirmed Type citalopram 40 mg tablet 20 mg PO HS 12/26/19 01/08/21 History levothyroxine 50 mcg tablet 50 mcg PO QAM 01/21/20 01/08/21 History acetaminophen 500 mg/15 mL oral 500 - 1,000 mg PO QID PRN 01/08/21 01/08/21 History liquid amoxicillin 250 mg/5 mL oral 500 mg PO BID 01/08/21 01/08/21 History suspension dexamethasone 2 mg tablet 2 mg PO BID 01/08/21 01/08/21 History divalproex 125 mg capsule,delayed 500 mg PO BID 01/08/21 01/08/21 History release sprinkle phenytoin 125 mg/5 mL oral 100 mg PO BID 01/08/21 01/08/21 History suspension (Dilantin-125) Patient History Medical History Altered mental status Dementia Depression GERD (gastroesophageal reflux disease) Hypothyroidism Migraine Oligodendroglioma hx of resection, chemo, radiation Palliative care encounter Poor historian [employer] Seizures Shortness of breath Weakness Surgical History H/O abdominal surgery "TIED OFF VESSELS FOR OVERPRODUCTION OF TESTOTERONE" History of ear surgery MOLE REMOVED FROM EAR History of tonsillectomy S/P brain surgery X 2 SURGERIES [place] teeth removed Family History Family/Other No problems noted. Father Family history of diabetes mellitus Denies family history of Crohn's disease Colorectal cancer Ulcerative colitis Social History Smoking Status: Never smoker Second Hand Exposure: Yes (IN THE PAST); Hx Alcohol Use: No Hx Substance Use: No Preferred Language: Andorran Communication Ability: Effective Visual Impairment: No Limitations Hearing Ability: Normal Vector Control Assistant Required: No Beliefs That Will Affect Care: None marital status: Current Living Situation: Spouse current occupational status: retired Other Information That Helps Us Care for You: No Feels Safe at Home: Yes Safety Concerns: Feels Safe At This Time Assistive Devices: Glasses and Oxygen - Continuous Review of Systems Review of Systems: Unobtainable due to mental health condition Physical Exam Physical Exam: Constitutional: No acute distress HEENT:PERRLA, eyes have right-sided gaze, left cornea and dry Respiratory system: Decreased air entry bilaterally, no wheeze, no rhonchi, positive crackles bilateral lower lobes CVS: S1-S2 positive, no murmurs or gallops Abdomen: Soft, nontender, nondistended, positive bowel sounds x4 Extremities: +2 pulses bilaterally radialis/ dorsalis pedis, no cyanosis, no edema Neuro: GCS 8 Psych: Unable to assess G/U: Positive [place] Skin: no rashes, warm and dry Lymphatic: no cervical or axillary lymphadenopathy Results & Data Results & Data ([facility]) Vital Signs (Past 12 Hours) Vital Signs Temp Pulse Pulse Resp BP Pulse Ox 01/11/21 11:57 80 16 93 01/11/21 11:14 37.2 C 83 16 157/78 H 93 01/11/21 07:46 78 01/11/21 07:42 37.3 C 81 16 153/80 H 92 01/11/21 07:11 83 16 94 01/10/21 08:49 01/11/21 07:14 PG Care Time/CCT Total # of Minutes Spent Total Time Spent with Patient: Total time spent is greater than 50% in coordination of care (as documented) at patient's floor/unit and/or counseling patient: Coding Level of Care Code 08801 Inpt Consult Level 3 Diagnoses Aspiration pneumonia J69.0 Altered mental status R41.82 Acute respiratory failure with hypoxia J96.01
[2021-01-11] MEDS ORDERED: ACETAMINOPHEN 1,000 MG/100 ML VIAL IV PRN (18:22)
[2021-01-11] MEDS ORDERED: ACETYLCYSTEINE 20% INHAL SOLN 4ML ***DISPENSED BY RESP. INH SCH (19:00)
[2021-01-11] MEDS: CITALOPRAM 20 MG TAB PO SCH (20:47)
[2021-01-12] MEDS: SODIUM CHLOR 7% 4 ML NEB NEB SCH ×4 (05:21→19:28)
[2021-01-12] MEDS: PHENYTOIN 100 MG/4 ML UDP PO SCH ×2 (05:56→06:10)
[2021-01-12] MEDS: LEVOTHYROXINE SODIUM 50 MCG TABLET PO SCH ×2 (05:56→06:10)
[2021-01-12] MEDS: SODIUM CHLORIDE 0.9% 10ML FLUSH IV SCH ×3 (05:57→22:06)
[2021-01-12] MEDS: PIPERACILLIN/TAZOBACTAM 3.375 GM in DEXTROSE 5% 100 ML IV SCH ×3 (05:57→22:04)
[2021-01-12] MEDS: ACETYLCYSTEINE 10% INHAL SOLN 4 ML **DISPENSED BY RESP. INH SCH ×2 (07:24→19:28)
[2021-01-12] MEDS: ALBUT/IPRATROP 3MG/0.5MG NEB 3 ML VIAL NEB SCH ×4 (07:24→19:28)
[2021-01-12] MEDS: DIVALPROEX SODIUM SPRINKLE 125 MG CAP PO SCH (08:40)
[2021-01-12] MEDS: dexAMETHasone 1 MG TAB PO SCH (08:40)
--- NOTE | 2021-01-12 10:26 | Pulmonology Progress Note ---
Date of Service January 12, 2021 Assessment & Plan (1) Aspiration pneumonia: (2) Altered mental status: (3) Acute respiratory failure with hypoxia: Plan: CT chest 01/08/2021 personally reviewed: Bilateral lower lobe infiltrate appreciated No mediastinal lymphadenopathy --Acute hypoxic respiratory failure Secondary to multilobar bilateral pneumonia Likely from chronic aspiration COVID-19 PCR negative Patient has progressive worsening mental status from his underlying progressing oligodendroglioma Continue with aspiration precautions CoughAssist along with chest vest therapy I do not think patient will be able to use flutter valve I will add hypertonic saline nebulized Plan: Patient seems to be more alert today. This could be a combination of antibiotics and waxing and waning of his medication He refused to take his p.o. medications today. Given the overall poor prognosis patient is going for home hospice today. Pulmonary will sign off. Please note the above document was generated using voice recognition software. It may contain grammatical, syntax or spelling errors.Any formal questions or concerns about the content, text or information contained within the body of this dictation should be directly addressed to the provider for clarification. Admission and Anticipated Discharge Date Admission Date: January 08, 2021 Subjective Patient seen and examined at bedside. No acute distress, no adverse events overnight. Patient is more alert today. Is answering questions appropriately. Denied any chest pain or shortness of breath. Has been afebrile. Review of Systems Review of Systems: All systems reviewed & are unremarkable except as noted in Subjective Physical Exam Physical Exam: Constitutional: No acute distress HEENT:PERRLA Respiratory system: Decreased air entry bilaterally, no wheeze, no rhonchi, positive crackles bilateral lower lobes CVS: S1-S2 positive, no murmurs or gallops Abdomen: Soft, nontender, nondistended, positive bowel sounds x4 Extremities: +2 pulses bilaterally radialis/ dorsalis pedis, no cyanosis, no edema Neuro: Awake alert oriented to self Psych: Normal mood and affect G/U: No Rothman Skin: no rashes, warm and dry Lymphatic: no cervical or axillary lymphadenopathy Results & Data Results & Data ([facility]) Vital Signs (Past 12 Hours) Vital Signs Temp Pulse Pulse Resp BP BP Pulse Ox 01/12/21 07:40 37.1 C 78 16 142/87 H 96 01/12/21 07:27 81 18 96 08/03/21 07:25 78 01/12/21 03:12 37.6 C H 83 16 141/85 H 90 01/11/21 23:26 36.5 C 77 16 129/80 95 01/11/21 22:41 93 H 01/10/21 08:49 01/11/21 07:14 PG Care Time/CCT Total # of Minutes Spent Total Time Spent with Patient: Total time spent is greater than 50% in coordination of care (as documented) at patient's floor/unit and/or counseling patient: Coding Level of Care Code 73019 Subseq Hosp Care Lvl 2 Diagnoses Aspiration pneumonia J69.0 Altered mental status R41.82 Acute respiratory failure with hypoxia J96.01
[2021-01-12] MEDS: dexAMETHasone 2 MG in SYRINGE 0 ML IV SCH ×2 (15:54→22:04)
[2021-01-12] MEDS: PHENYTOIN 100 MG in SYRINGE 0 ML IV SCH ×2 (15:54→22:04)
--- NOTE | 2021-01-12 16:49 | Hospitalist Progress Note ---
Date of Service January 12, 2021 Assessment & Plan (1) Acute respiratory failure with hypoxia: Plan: Acute respiratory failure with hypoxia Mucous plugging Suspected aspiration pneumonitis Possible Metabolic encephalopathy Agree with empiric antibiotics Chest PT, hypertonic saline nebs, Mucomyst Continue supplemental oxygen as needed No aggressive management as per patient's family Speech therapy Eval Aspiration precautions Unable to wean off of oxygen Not a candidate for bronchoscopy Appreciate Pulmonary and palliative care input Poor Prognosis Plan to discharge home with Hospice services when arranged Oligodendroglioma: S/P Resection, chemotherapy, radiation Currently no active treatment No further treatment options per family Continue home meds Appreciate Palliative care Input Plan to transition to hospice upon discharge Seizures: Continue phenytoin and Depakote Changed to IV meds as patient refusing PO meds Hypothyroidism: Continue levothyroxine Code Status DNI/DNR DVT Px: SCDs Re:Brain mass Admission and Anticipated Discharge Date Admission Date: January 08, 2021 Subjective Patient seen and examined at bedside. Refused meds, food Poor prognosis History difficult to obtain Denies chest pain dyspnea Saturating low 90s on 3 L of supplemental oxygen Review of Systems Review of Systems: All systems reviewed & are unremarkable except as noted in Subjective Physical Exam Physical Exam: Physical Exam: Vitals signs as noted above General Appearance:Moderately built and nourished, no apparent distress Head: normocephalic, Atraumatic Eyes: normal inspection, EOMI Neck: supple, Trachea midline Respiratory/Chest: Decreased breath sounds, CTA Cardiovascular: S1, S2, No murmur Abdomen/GI:Soft, Non tender, Bowel sounds present Extremities/Musculoskeletal:normal inspection, no edema Neurologic/Psych:AA, tries to follow commands, complete neurological exam could not be performed, Non verbal Skin: normal color, warm Results & Data Results & Data ([facility]) Vital Signs (Past 12 Hours) Vital Signs Temp Pulse Pulse Resp BP Pulse Ox 01/12/21 15:51 37.5 C 95 H 16 134/87 91 01/12/21 15:39 83 18 91 01/12/21 15:05 91 H 01/12/21 11:47 37.3 C 82 16 126/79 93 01/12/21 11:02 80 20 93 01/12/21 07:40 37.1 C 78 16 142/87 H 96 01/12/21 07:27 81 18 96 01/12/21 07:25 78
[2021-01-12] MEDS: VALPROATE SOD 250 MG in DEXTROSE 5% 50 ML IV SCH ×2 (16:51→20:56)
[2021-01-12] MEDS: CITALOPRAM 20 MG TAB PO SCH (22:04)
[2021-01-13] MEDS: PIPERACILLIN/TAZOBACTAM 3.375 GM in DEXTROSE 5% 100 ML IV SCH ×2 (06:17→15:12)
[2021-01-13] MEDS: SODIUM CHLOR 7% 4 ML NEB NEB SCH (07:04)
[2021-01-13] MEDS: ACETYLCYSTEINE 10% INHAL SOLN 4 ML **DISPENSED BY RESP. INH SCH (07:04)
[2021-01-13] MEDS: ALBUT/IPRATROP 3MG/0.5MG NEB 3 ML VIAL NEB SCH ×3 (07:05→16:16)
[2021-01-13 07:56] LABS: Hematocrit (blood only) 42.3 % (42-52); Hemoglobin 14.8 g/dL (14.0-18.0); Mean Corpuscular Hemoglobin 33.8 pg (25-34); Mean Corpuscular Volume 96.6 fL (80-100); Mean Platelet Volume 10.2 fL (7.4-10.4); Platelet Count 258 K/uL (130-400); RDW Coefficient of Variation 13.4 % (11.5-14.5); RDW Standard Deviation 47.8 fL (36.4-46.3); Red Blood Count 4.38 M/uL (4.7-6.1)
[2021-01-13 08:13] LABS: BUN Creatinine Ratio 15.8 (10-20); Calcium 9.1 mg/dl (8.5-10.1); Est GFR (African American) 123.1 ml/min; Est GFR (Non-African American) 106.2 ml/min; Potassium 3.9 mmol/L (3.5-5.1)
[2021-01-13] MEDS: dexAMETHasone 2 MG in SYRINGE 0 ML IV SCH (08:39)
[2021-01-13] MEDS ORDERED: LEVOTHYROXINE SODIUM 25 MCG in SYRINGE 0 ML IV SCH (09:00)
[2021-01-13] MEDS: PHENYTOIN 100 MG in SYRINGE 0 ML IV SCH (09:11)
[2021-01-13] MEDS: SODIUM CHLORIDE 0.9% 10ML FLUSH IV SCH (09:13)
[2021-01-13] MEDS: VALPROATE SOD 250 MG in DEXTROSE 5% 50 ML IV SCH ×2 (10:28→14:00)
--- NOTE | 2021-01-13 10:46 | Hospitalist Progress Note ---
Date of Service January 13, 2021 Assessment & Plan (1) Acute respiratory failure with hypoxia: Plan: Aspiration pneumonia Acute respiratory failure with hypoxia Mucous plugging Suspected aspiration pna Possible Metabolic encephalopathy Agree with empiric antibiotics Chest PT, hypertonic saline nebs, Mucomyst Continue supplemental oxygen as needed No aggressive management as per patient's family Speech therapy Eval Aspiration precautions Unable to wean off of oxygen Not a candidate for bronchoscopy Appreciate Pulmonary and palliative care input Poor Prognosis Plan to discharge home with Hospice services when arranged Oligodendroglioma: S/P Resection, chemotherapy, radiation Currently no active treatment No further treatment options per family Continue home meds Appreciate Palliative care Input Plan to transition to hospice upon discharge Seizures: Continue phenytoin and Depakote Changed to IV meds as patient refusing PO meds Changed to liquid form, hopefully it will be easier for patient to take at home once discharged Hypothyroidism: Continue levothyroxine Code Status DNI/DNR DVT Px: SCDs Re:Brain mass Admission and Anticipated Discharge Date Admission Date: January 08, 2021 Subjective Patient seen and examined at bedside. He is lying in bed, no acute distress, he is able to nod his head, denying any discomfort or pain on supplemental oxygen, currently on 4 L Poor prognosis Plan to discharge home with hospice discussed with pharmacy, and changed his medications to p.o. liquid form, hopefully it will be easier for the patient to take once discharged Review of Systems Review of Systems: All systems reviewed & are unremarkable except as noted in Subjective Physical Exam Physical Exam: General Appearance: Moderately built and nourished, no apparent distress, on suppl. O2 via [place] Head: normocephalic, Atraumatic Eyes: normal inspection, EOMI Neck: supple, Trachea midline Respiratory/Chest: Decreased breath sounds, CTA Cardiovascular: S1, S2, No murmur Abdomen/GI:Soft, Non tender, Bowel sounds present Extremities/Musculoskeletal:normal inspection, no edema Neurologic/Psych:AA, tries to follow commands, complete neurological exam could not be performed, Non verbal but able to nod his head and answer that way Skin: dry, warm Results & Data Results & Data ([facility]) Vital Signs (Past 12 Hours) Vital Signs Temp Pulse Pulse Pulse Resp BP BP 01/13/21 09:47 36.8 C 84 82 24 140/82 141/85 H 01/13/21 09:00 36.8 C 84 24 140/82 01/13/21 08:13 37.0 C 82 19 138/88 01/13/21 08:11 37.1 C 68 19 124/66 01/13/21 07:57 82 01/13/21 07:10 82 18 01/13/21 02:51 37 C 89 17 130/88 01/13/21 00:35 95 H 01/12/21 23:02 36.8 C 95 H 18 130/90 Pulse Ox 01/13/21 09:47 90 01/13/21 09:00 90 01/13/21 08:13 88 L 01/13/21 08:11 92 01/13/21 07:57 01/13/21 07:10 92 01/13/21 02:51 90 01/13/21 00:35 01/12/21 23:02 91 Laboratory Results 01/13/21 01/13/21 Range/Units 07:33 07:33 WBC 6.80 (4.8-10.8) K/uL RBC 4.38 L (4.7-6.1) M/uL Hgb 14.8 (14.0-18.0) g/dL Hct 42.3 (42-52) % MCV 96.6 (80-100) fL MCH 33.8 (25-34) pg MCHC 35.0 (32-36) g/dL RDW Std Deviation 47.8 H (36.4-46.3) fL RDW Coeff of Jose 13.4 (11.5-14.5) % Plt Count 258 (130-400) K/uL MPV 10.2 (7.4-10.4) fL Sodium 139 (136-145) mmol/L Potassium 3.9 (3.5-5.1) mmol/L Chloride 105 (98-107) mmol/L Carbon Dioxide 28 (21-32) mmol/L Anion Gap 6.0 (3-11) BUN 9 (7-18) mg/dl Creatinine 0.59 L (0.6-1.4) mg/dl Est Cr Clr Drug Dosing 137.0 ml/min Est GFR ( Amer) 123.1 ml/min Est GFR (Non-Af Amer) 106.2 ml/min BUN/Creatinine Ratio 15.8 (10-20) Glucose 108 H (70-99) mg/dl Calcium 9.1 (8.5-10.1) mg/dl Medications Administered Current Inpatient Medications Acetylcysteine (Acetylcysteine 10% Inhal Soln 4 Ml Dispensed By Resp.) 5 ml INH BIDR HOME Stop: 02/08/21 11:29 Last Admin: 01/13/21 07:04 Dose: 5 ml Documented by: Albuterol (Albut/Ipratrop 3mg/0.5mg Neb 3 Ml Vial) 3 ml NEB QIDR HOME Stop: 02/07/21 19:17 Last Admin: 01/13/21 07:05 Dose: 3 ml Documented by: Citalopram Hydrobromide (Citalopram 20 Mg Tab) 20 mg PO HS HOME Stop: 02/09/21 20:59 Last Admin: 01/12/21 22:04 Dose: Not Given Documented by: Piperacillin Sod/Tazobactam (Sod 3.375 gm/ Dextrose) 115 mls @ 28.75 mls/hr IV Q8H HOME; Protocol Stop: 01/15/21 19:59 Last Infusion: 01/13/21 10:31 Dose: Infused Documented by: Acetaminophen (Ofirmev) 1,000 mg in 100 mls @ 400 mls/hr IV Q8H PRN PRN Reason: Fever Stop: 01/14/21 18:21 Last Infusion: 01/12/21 16:11 Dose: Infused Documented by: Phenytoin 100 mg/ Syringe 2 mls @ 1 mls/min IV Q12 HOME Stop: 02/11/21 14:59 Last Admin: 01/13/21 09:11 Dose: 1 mls/min Documented by: Dexamethasone 2 mg/ Syringe 0.5 mls @ 1 mls/min IV Q12 HOME Stop: 02/11/21 14:59 Last Admin: 01/13/21 08:39 Dose: 1 mls/min Documented by: Valproic Acid 250 mg/ Dextrose 52.5 mls @ 52.5 mls/hr IV QID HOME Stop: 02/11/21 16:59 Last Admin: 01/13/21 10:28 Dose: 52.5 mls/hr Documented by: Levothyroxine Sodium 25 mcg/ (Syringe) 1.25 mls @ 0.625 mls/min IV Q72H HOME; Protocol Stop: 02/12/21 08:59 Last Admin: 01/13/21 09:11 Dose: 0.625 mls/min Documented by: Miscellaneous Information (Piperacill/Tazobac Consult Active) 1 ea N/A UD PRN PRN Reason: Consult Stop: 02/07/21 19:17 Sodium Chloride (Sodium Chlor 7% 4 Ml Neb) 4 ml NEB BIDR [facility] Stop: 02/08/21 06:59 Last Admin: 01/13/21 07:04 Dose: 4 ml Documented by: Sodium Chloride (Sodium Chloride 0.9% 10ml Flush) 20 ml IV Q12 [facility] Stop: 02/11/21 14:59 Last Admin: 01/13/21 09:13 Dose: 20 ml Documented by:
--- NOTE | 2021-01-13 11:24 | Pharmacy Report ---
Pharmacy Progress Note - Date of Service January 13, 2021 - Progress Note Received a call from attending physician requesting recommendations for dosing of medications in the liquid form as patient has aspiration issues and will be discharged on hospice. Recommend the following: * Valproic Acid Solution 250 mg/5 mL - Take 5 mL by mouth four times per day * Citalopram Hydrobromide Solution 10 mg/5 mL - Take 10 mL by mouth at bedtime (NOT STOCKED AT [facility]) * Phenytoin Suspension 125 mg/5 mL - Take 4 mL by mouth two times per day * Levothyroxine 50 mcg Tablet - Crush 1 tab and mix in 10 mL of water once daily before breakfast (swallow immediately) * Dexamethasone Concentrate 1 mg/mL - Take 2 mL by mouth two times per day Thank you for engaging the clinical pharmacy consult service in the care of this patient. Please let us know if we can be of further assistance.
--- NOTE | 2021-01-13 15:04 | Discharge Summary ---
Date of Service January 13, 2021 Admission HPI Per Admitting Provider 65-year-old male with PMH oligodendroglioma diagnosed in 1997 s/p resection, chemotherapy, radiation, seizures, hypothyroidism, and other problems listed below who presents to the ED for evaluation of shortness of breath and generalized weakness. History is unobtainable from the patient, is at the bedside who provides the history. reports that patient typically could walk with the use of an assistive device. Over the past week and a half, patient has been having increasing left-sided weakness to the point where it is flaccid. Patient has been bedbound for the past couple of days. Patient has been having trouble swallowing his medications. He is nonverbal at baseline however will communicate by shaking his head yes and no. This morning, patient appeared to have increased work of breathing so he was brought to the ED for further evaluation. reports that he was very diaphoretic however did not take his temperature. Incontinent of bowel and bladder at baseline. No other symptoms reported. No recent seizure-like activity. In the ED, patient was requiring nonrebreather mask to maintain saturations. CXR is suggestive of aspiration pneumonia. WBC 12 K. Patient is afebrile and hemodynamically stable. Head CT shows brain mass unchanged. Patient was given IV Zosyn, IVF. Admission Exam Per Admitting Provider General Appearance:Moderately built and nourished, no apparent distress Head: normocephalic, Atraumatic Eyes: normal inspection, EOMI Neck: supple, Trachea midline Respiratory/Chest: Coarse breath sounds, CTA Cardiovascular: S1, S2, No murmur Abdomen/GI:Soft, Non tender, Bowel sounds present Extremities/Musculoskeletal:normal inspection, no edema Neurologic/Psych:AA, tries to follow commands, complete neurological exam could not be performed, Non verbal Skin: normal color, warm Principal Diagnosis Aspiration pneumonia Acute respiratory failure with hypoxia Oligodendroglioma Hx of seizures Hypothyroidism Discharge Exam General Appearance: Moderately built and nourished, no apparent distress, on suppl. O2 via [place] Head: normocephalic, Atraumatic Eyes: normal inspection, EOMI Neck: supple, Trachea midline Respiratory/Chest: Decreased breath sounds, CTA Cardiovascular: S1, S2, No murmur Abdomen/GI:Soft, Non tender, Bowel sounds present Extremities/Musculoskeletal:normal inspection, no edema Neurologic/Psych:AA, tries to follow commands, complete neurological exam could not be performed, Non verbal but able to nod his head and answer that way Skin: dry, warm Discharge Data Allergies Allergy/AdvReac Type Severity Reaction Status Date / Time baclofen Allergy Severe Unresponsiv Verified 01/08/21 15:56 e procarbazine Allergy Intermediate RASH, Verified 01/08/21 15:56 SWELLING OF HANDS/FACE Consultations 01/08/21 14:28 Consult Palliative Care Routine 01/11/21 13:24 Consult Pulmonology Routine Ordered Studies 01/08/21 11:24 CT head/brain wo con Stat Impression: 1. Redemonstration of the infiltrative mass centered within the right frontal lobe which extends into the right basal ganglia and left frontal lobe. Although direct comparison is difficult given the different modalities, this is overall similar in distribution compared to the prior brain MRI. 2. Multifocal hyperdense foci within the frontal lobes likely representing calcification/posttreatment changes within the mass. Small focal areas of hemorr lake are considered less likely but not entirely excluded. Consider [address] follow to ensure stability. 3. No change in the resection cavity within the right frontal lobe. 01/08/21 13:19 CT angio chest PE protocol Stat IMPRESSION: 1. No pulmonary emboli. 2. Tracheobronchial secretions with bibasilar mucous plugging. 3. Dependent bibasilar consolidation is suggestive of atelectasis or pneumonia. Correlate clinically to exclude aspiration pneumonitis. 4. No pleural effusion. Hospital Course (1) Acute respiratory failure with hypoxia: Aspiration pneumonia Acute respiratory failure with hypoxia Mucous plugging Suspected aspiration pna Possible Metabolic encephalopathy Agree with empiric antibiotics Chest PT, hypertonic saline nebs, Mucomyst Continue supplemental oxygen as needed No aggressive management as per patient's family Speech therapy Eval Aspiration precautions Unable to wean off of oxygen Not a candidate for bronchoscopy Appreciate Pulmonary and palliative care input Poor Prognosis Plan to discharge home with Hospice services Oligodendroglioma: S/P Resection, chemotherapy, radiation Currently no active treatment No further treatment options per family Continue home meds Appreciate Palliative care Input Plan to transition to hospice upon discharge Seizures: Continue phenytoin and Depakote Changed to IV meds while inpt Changed to liquid form, hopefully it will be easier for the patient to take at home once discharged (discussed w/ pharmacy in detail) Hypothyroidism: Continue levothyroxine Code Status DNI/DNR DVT Px: SCDs Re:Brain mass Total Time Total Time Spent Total Time Spent (In Minutes): 40 Discharge Plan Discharge Items Patient Disposition: Hospice - Home Reason For Visit: ASPIRATION PNEUMONIA Discharge Diagnosis: Aspiration pneumonia Acute respiratory failure with hypoxia Oligodendroglioma Hx of seizures Hypothyroidism Activity: Per Instructions section Non-emergency contact: Primary Care Provider Call non-emergency contact if: you have any medication questions and your symptoms worsen Follow-up/Referrals: Jun Macdonald M.D. [Primary Care Provider] - Diet: Regular Addtl Attending Provider Instructions: Patient is a high aspiration risk, and not clear what he can tolerate p.o. He is to be discharged with home hospice. To make his medications easier, will have changed some of his medications to liquid form and have sent prescription to his pharmacy. We will also provide liquid form from the hospital at the discharge. These medications include valproic acid, phenytoin, and dexamethasone. If he is able to take his home medications he can, we are hoping that liquid form is easier for the patient to take. Levothyroxine tablet can be crushed in little bit of water, (about 10 mL), and given to the patient. Rest of the medications per hospice. Pending Studies at Discharge: No Stand-Alone Forms: My [facility] Medications and DC Order Prescriptions: New valproic acid (as sodium salt) 250 mg/5 mL (5 mL) Solution 250 mg PO QID Qty: 200 RF: 0 phenytoin 125 mg/5 mL Suspension 100 mg PO Q12 Qty: 237 RF: 0 Dexamethasone Intensol 1 mg/mL Drops 2 mg PO Q12H Qty: 30 RF: 0 Continued citalopram 40 mg tablet 20 mg PO HS RF: 0 levothyroxine 50 mcg Tablet 50 mcg PO QAM RF: 0 phenytoin [Dilantin-125] 125 mg/5 mL suspension 100 mg PO BID RF: 0 amoxicillin 250 mg/5 mL suspension for reconstitution 500 mg PO BID RF: 0 dexamethasone 2 mg tablet 2 mg PO BID RF: 0 acetaminophen [Tylenol Extra Strength] 500 mg/15 mL Liquid 500 - 1,000 mg PO QID PRN (Reason: fever/pain) RF: 0 divalproex 125 mg capsule, delayed rel sprinkle 500 mg PO BID RF: 0 Discharge Orders: Discharge Order (Routine); Ordered 01/13/21 Ordered By: Arpan Luna Admission Data Admit Date/Time: 01/08/21 14:04 Attending Provider: Arpan Luna Admit Provider: Cecilio Houston Primary Care Provider: Jun Macdonald Other Providers: Dorothy Moore ; Ezekiel Armstrong ; Cecilio Houston Other Interventions: Discharge Summary Assessment (RN) Last Done: 01/13/21 09:47
[2021-01-13] MEDS ORDERED: VALPROIC ACID SOLN 250 MG/5 ML UDC PO SCH (17:00)
[2021-01-13] MEDS ORDERED: ALBUT/IPRATROP 3MG/0.5MG NEB 3 ML VIAL NEB SCH (19:00)
[2021-01-13] MEDS ORDERED: DEXAMETHASONE CONC 1 MG/ML 30 ML PO SCH (21:00)
[2021-01-13] MEDS ORDERED: PHENYTOIN SUSP 125 MG/5 ML PO SCH (21:00)
[2021-01-14] MEDS ORDERED: PHENYTOIN SUSP 125 MG/5 ML PO SCH
[2021-01-14] MEDS ORDERED: VALPROIC ACID SOLN 250 MG/5 ML UDC PO SCH
[2021-01-14] MEDS ORDERED: DEXAMETHASONE CONC 1 MG/ML 30 ML PO SCH
== END 2021-01-13 16:16 | disposition hospice, home (50) | DRG 177 ==
LOC: ED 11:00 → 2W 14:04 → SUATTDRO 14:04 → 2W 18:18